=== PATIENT | female | born 1960 | race Caucasian/White ===

== ENCOUNTER → 2017-10-01 | Outpatient (CLI) | payer BC, OTHER ==
[~2017-10-01] MED LIST: HYDR-757 PO; LEVO150T6 PO; LIOT5TAB3 PO; METF500T3 PO; METF500T4 PO; MULT-974 PO; ONDA4TAB8 PO; SPIR50TA2 PO
--- NOTE | 2017-10-01 18:38 | Diagnostic Imaging Report ---
INDICATION: Routine screening. The current study was also evaluated with a Computer Aided Detection (CAD) system. Comparison is made with prior study from 03/16/2007. FINDINGS: Both breasts show marked parenchymal heterogeneity and increased density, limiting the sensitivity of mammography. There is a density in the inferior right breast best seen on the MLO view which appears more prominent when compared with prior exam. Additional views are recommended. No definite correlate on the CC view is seen. The left breast is unremarkable. The axillae are unremarkable. IMPRESSION: Right breast density. Additional views are recommended. ACR BI-RADS Category 0: Incomplete. (Needs additional imaging evaluation). Result letter will be mailed to the patient. Note: At least 10% of breast cancer is not imaged by mammography. Dictated by: Dictated on workstation # [id number]
== END ==
LOC: RAD 10:32
PROVIDERS: ATTEND Nurse Practitioner Family
DX: Z12.31 Encounter for screening mammogram for malignant neoplasm of breast (principal)
CPT/HCPCS: 77067

== ENCOUNTER → 2018-03-25 | Outpatient (CLI) | payer OTHER ==
[~2018-03-25] MED LIST changes: +HYDR-4226 PO; -HYDR-757 PO; +METF-397 PO; -METF500T4 PO; -SPIR50TA2 PO; +SPIR50TA4 PO
--- NOTE | 2018-03-25 12:52 | Diagnostic Imaging Report ---
INDICATION: Right breast density noted on screening mammogram from September 2017. Additional views were recommended. The patient did not return. The patient is now returning for additional views. COMPARISON: 10/01/2017. TECHNIQUE: Unilateral right 2D and 3D diagnostic mammography with CAD was performed. This included CC, MLO, and mediolateral views as well as spot compression ML view of the right breast. FINDINGS: The right breast is heterogeneously dense, limiting the sensitivity of mammography. The area of increased density in the inferior right breast is less prominent on today's study and most likely represents fibroglandular tissue. No underlying mass is seen. No suspicious calcifications are identified. The right axilla is unremarkable. IMPRESSION: Additional views fail to demonstrate a discrete mass. The patient may return to routine annual screening mammography in September 2018. ACR BI-RADS Category 1: Negative. Result letter will be mailed to the patient. Note: At least 10% of breast cancer is not imaged by mammography. Dictated by: Dictated on workstation # [id number]
--- NOTE | 2018-03-25 16:10 | Diagnostic Imaging Report ---
INDICATION: Dysphagia. Thyroid sonography performed in the routine fashion. FINDINGS: The right thyroid lobe measured 6.4 x 2.4 x 1.7 cm. The left thyroid lobe measured 4.7 x 2.1 x 1.5 cm. The thyroid gland showed a diffuse heterogeneous appearance without focal nodular lesion. IMPRESSION: Diffuse heterogeneous thyroid gland with no focal nodular lesion. Dictated by: Dictated on workstation # [id number]
== END ==
LOC: RAD 11:17
PROVIDERS: ATTEND Internal Medicine
DX: R13.10 Dysphagia, unspecified (principal); E01.0 Iodine-deficiency related diffuse (endemic) goiter; R92.2 Inconclusive mammogram
CPT/HCPCS: 76536

== ENCOUNTER → 2020-04-22 | Emergency (ER) | payer BC, OTHER ==
[~2020-04-22] VITALS: Ht 162.5 cm; Wt 98.8 kg
[~2020-04-22] MED LIST changes: +ASPIRIN 81 MG CHEW (CHILDREN'S ASA) PO ONE; +LIOT5TAB10 PO; -LIOT5TAB3 PO
[2020-04-22 16:47] VITALS: BP 158/85
[2020-04-22 17:32] LABS: BASOPHILS # (AUTO) 0.1 10^3/uL (0.0-0.1); BASOPHILS % (AUTO) 1 % (0-10); EOSINOPHILS # (AUTO) 0.4 10^3/uL (0.0-0.3); EOSINOPHILS % (AUTO) 4 % (0-10); HEMATOCRIT 43 % (35-52); HEMOGLOBIN 14.9 G/DL (11.5-16.0); LYMPHOCYTES % (AUTO) 28 % (12-44); MEAN CORPUSCULAR HEMOGLOBIN 32 PG (25-34); MEAN CORPUSCULAR HGB CONC 34 G/DL (32-36); MEAN CORPUSCULAR VOLUME 92 FL (80-99); MEAN PLATELET VOLUME 9.9 FL (7.4-10.4); MONOCYTES # (AUTO) 0.8 X 10^3 (0.0-1.0); MONOCYTES % (AUTO) 8 % (0-12); NEUTROPHILS # (AUTO) 6.4 X 10^3 (1.8-7.8); NEUTROPHILS % (AUTO) 60 % (42-75); PLATELET COUNT 359 10^3/uL (130-400); WHITE BLOOD COUNT 10.8 10^3/uL (4.3-11.0)
[2020-04-22 17:37] LABS: ALBUMIN 4.5 GM/DL (3.2-4.5); CHLORIDE 105 MMOL/L (98-107); POTASSIUM 3.6 MMOL/L (3.6-5.0); SODIUM 140 MMOL/L (135-145)
[2020-04-22 17:38] LABS: CALCIUM 9.5 MG/DL (8.5-10.1)
[2020-04-22 17:39] LABS: GLUCOSE 85 MG/DL (70-105); PROTHROMBIN TIME PATIENT 13.2 SEC (12.2-14.7)
[2020-04-22 17:40] LABS: TOTAL PROTEIN 8.3 GM/DL (6.4-8.2)
[2020-04-22 17:41] LABS: BILIRUBIN,TOTAL 0.6 MG/DL (0.1-1.0); CARBON DIOXIDE 22 MMOL/L (21-32)
[2020-04-22 17:43] LABS: ALKALINE PHOSPHATASE 71 U/L (40-136); CREATININE SERUM 0.85 MG/DL (0.60-1.30); GFR ESTIMATED > 60
[2020-04-22 17:44] LABS: BUN/CREATININE RATIO 19
[2020-04-22 17:46] LABS: ALANINE AMINOTRANSFERASE 86 U/L (0-55)
[2020-04-22 17:47] LABS: MAGNESIUM 1.9 MG/DL (1.6-2.4)
--- NOTE | 2020-04-22 18:12 | Diagnostic Imaging Report ---
EXAMINATION: Chest radiograph, portable AP view. DATE: 04/22/2020 6:02 PM hours. INDICATION: 60-year-old female, chest pain. COMPARISON: None. FINDINGS: Heart size and mediastinal contours are unremarkable. There is no identified pneumothorax. There is no large pleural effusion. There is no identified focal airspace consolidation. IMPRESSION: No identified acute cardiopulmonary abnormality. Dictated by: Dictated on workstation # [id number]
--- NOTE | 2020-04-22 18:18 | ED Cardiac General ---
History of Present Illness General Chief Complaint: Cardiac/General Problems Stated Complaint: HEART PALPITATIONS Nursing Triage Note: pt reports feeling palpitations for several days, states not pain, more anxiety. eating lunch when it began. Source: patient Exam Limitations: no limitations History of Present Illness Date Seen by Provider: Apr 22, 2020 Time Seen by Provider: 16:55 Initial Comments This 60-year-old woman presents to the emergency room with complaints of palpitations intermittently for the past 2 weeks and consistently since about no on today. At one point she described a vague sensation of feeling "tight or heavy" in the chest. She later clarifies that she has no true pain or discomfort, just an odd sensation accompanying the palpitations.she denies any cardiopulmonary problems in the past. She had a stress test many years ago that reportedly was negative. Her primary care provider is Julisa Blake. Allergies and Home Medications Allergies Coded Allergies: No Known Drug Allergies (Unverified , 02/13/16) Home Medications Hydrocodone/Acetaminophen 1 Each Tablet, 1 EACH PO Q6H PRN for PAIN, (Reported) Levothyroxine Sodium 150 Mcg Tablet, 150 MCG PO DAILY, (Reported) Liothyronine Sodium 5 Mcg Tablet, 10 MCG PO DAILY, (Reported) Metformin HCl 500 Mg Tab.er.24h, 500 MG PO BID, (Reported) Multivitamin 1 Each Tablet, 1 EACH PO DAILY, (Reported) Ondansetron 4 Mg Tab.rapdis, 4 MG PO Q6H PRN for NAUSEA, (Reported) Spironolactone 50 Mg Tablet, 100 MG PO DAILY, (Reported) Patient Home Medication List Home Medication List Reviewed: Yes Review of Systems Review of Systems Constitutional: no symptoms reported EENTM: No Symptoms Reported Respiratory: No Symptoms Reported Cardiovascular: See HPI Gastrointestinal: No Symptoms Reported Genitourinary: No Symptoms Reported Musculoskeletal: no symptoms reported Skin: no symptoms reported Psychiatric/Neurological: No Symptoms Reported Endocrine: No Symptoms Reported Past Pkfoeiq-Icylmb-Yvwabe Hx Past Med/Social Hx: Reviewed Nursing Past Med/Soc Hx Patient Social History Alcohol Use: Occasionally Uses Recreational Drug Use: No Smoking Status: Never a Smoker Recent Foreign Travel: No Contact w/Someone Who Travel: No Recent Infectious Disease Expo: No Recent Hopitalizations: No Physical Abuse: No Sexual Abuse: No Mistreated: No Seasonal Allergies Seasonal Allergies: No Past Medical History Surgeries: Yes Hysterectomy Respiratory: No Cardiac: No Neurological: No 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 8.0oz. 87.571531hd; 37.00 BMI Method:Estimated General Appearance: No Apparent Distress, WD/WN HEENT: PERRL/EOMI, Normal ENT Inspection Neck: Normal Inspection Respiratory: Lungs Clear, Normal Breath Sounds, No Accessory Muscle Use, No Respiratory Distress Cardiovascular: Regular Rate, Rhythm, No Edema, No Murmur, Normal Peripheral Pulses, Other (intermittent frequent PVCs) Gastrointestinal: Normal Bowel Sounds, Non Tender, Soft Extremity: Normal Inspection, Non Tender, No Calf Tenderness, No Pedal Edema Neurologic/Psychiatric: Alert, Oriented x3, No Motor/Sensory Deficits, Normal Mood/Affect, pile header II-XII Norm as Tested Skin: Normal Color, Warm/Dry Progress/Results/Core Measures Results/Orders Lab Results Laboratory Tests Test 04/22/20 16:52 04/22/20 19:09 Range/Units White Blood Count 10.8 4.3-11.0 10^3/uL Red Blood Count 4.71 4.35-5.85 10^6/uL Hemoglobin 14.9 11.5-16.0 G/DL Hematocrit 43 35-52 % Mean Corpuscular Volume 92 80-99 FL Mean Corpuscular Hemoglobin 32 25-34 PG Mean Corpuscular Hemoglobin Concent 34 32-36 G/DL Red Cell Distribution Width 12.7 10.0-14.5 % Platelet Count 359 130-400 10^3/uL Mean Platelet Volume 9.9 7.4-10.4 FL Neutrophils (%) (Auto) 60 42-75 % Lymphocytes (%) (Auto) 28 12-44 % Monocytes (%) (Auto) 8 0-12 % Eosinophils (%) (Auto) 4 0-10 % Basophils (%) (Auto) 1 0-10 % Neutrophils # (Auto) 6.4 1.8-7.8 X 10^3 Lymphocytes # (Auto) 3.0 1.0-4.0 X 10^3 Monocytes # (Auto) 0.8 0.0-1.0 X 10^3 Eosinophils # (Auto) 0.4 H 0.0-0.3 10^3/uL Basophils # (Auto) 0.1 0.0-0.1 10^3/uL Prothrombin Time 13.2 12.2-14.7 SEC INR Comment 1.0 0.8-1.4 Activated Partial Thromboplast Time 28 24-35 SEC Sodium Level 140 135-145 MMOL/L Potassium Level 3.6 3.6-5.0 MMOL/L Chloride Level 105 98-107 MMOL/L Carbon Dioxide Level 22 21-32 MMOL/L Anion Gap 13 5-14 MMOL/L Blood Urea Nitrogen 16 7-18 MG/DL Creatinine 0.85 0.60-1.30 MG/DL Estimat Glomerular Filtration Rate > 60 BUN/Creatinine Ratio 19 Glucose Level 85 70-105 MG/DL Calcium Level 9.5 8.5-10.1 MG/DL Corrected Calcium 9.1 8.5-10.1 MG/DL Magnesium Level 1.9 1.6-2.4 MG/DL Total Bilirubin 0.6 0.1-1.0 MG/DL Aspartate Amino Transf (AST/SGOT) 59 H 5-34 U/L Alanine Aminotransferase (ALT/SGPT) 86 H 0-55 U/L Alkaline Phosphatase 71 40-136 U/L Myoglobin 203.0 H 10.0-92.0 NG/ML Troponin I < 0.028 < 0.028 <0.028 NG/ML Total Protein 8.3 H 6.4-8.2 GM/DL Albumin 4.5 3.2-4.5 GM/DL My Orders Orders - NATALIE YA MD Cbc With Automated Diff (04/22/20 17:23) Magnesium (04/22/20 17:23) Chest 1 View, Ap/Pa Only (04/22/20 17:23) Ekg Tracing (04/22/20 17:23) Comprehensive Metabolic Panel (04/22/20 17:23) Myoglobin Serum (04/22/20 17:23) Protime With Inr (04/22/20 17:23) Partial Thromboplastin Time (04/22/20 17:23) O2 (04/22/20 17:23) Monitor-Rhythm Ecg Trace Only (04/22/20 17:23) Lipid Panel (04/23/20 06:00) Ed Iv/Invasive Line Start (04/22/20 17:23) Troponin I (04/22/20 17:23) Troponin I (04/22/20 19:00) Ekg Tracing (04/22/20 18:18) Aspirin Chewable Tablet (Baby Aspirin Ch (04/22/20 18:30) Medications Given in ED Current Medications Medications Dose Ordered Sig/Ilene Route Start Time Stop Time Status Last Admin Dose Admin Aspirin 324 mg ONCE ONCE PO 04/22/20 18:30 04/22/20 18:31 DC 04/22/20 18:36 324 MG Vital Signs/I&O 04/22/20 16:47 Temp 36.5 Pulse 89 Resp 20 B/P (MAP) 158/85 (109) Pulse Ox 95 O2 Delivery Room Air Blood Pressure Mean: 109 Progress Progress Note : Progress Note Initial workup was unremarkable. 2 hour troponin and EKG were also unremark able. Patient was discharged home in stable condition with return precautions. Initial ECG Impression Date: Apr 22, 2020 Initial ECG Impression Time: 16:47 Initial ECG Rate: 93 Initial ECG Rhythm: Normal Sinus Initial ECG Intervals: Normal Initial ECG Impression: Normal Comment Normal sinus rhythm with no ST elevation or depression. No abnormal intervals or axis deviation. Diagnostic Imaging Diagonstic Imaging: Xray Plain Films/CT/US/NM/MRI: chest Comments NAME: KAMRYN ARRIOLA [facility] REC#: [id number] PT STATUS: REG ER : 1960 PHYSICIAN: NATALIE YA MD ADMIT DATE: 04/22/20/ER Signed Date of Exam:04/22/20 CHEST 1 VIEW, AP/PA ONLY EXAMINATION: Chest radiograph, portable AP view. DATE: 04/22/2020 6:02 PM hours. INDICATION: 60-year-old female, chest pain. COMPARISON: None. FINDINGS: Heart size and mediastinal contours are unremarkable. There is no identified pneumothorax. There is no large pleural effusion. There is no identified focal airspace consolidation. IMPRESSION: No identified acute cardiopulmonary abnormality. Dictated by: Dictated on workstation # [id number] Dict: 04/22/201809 Trans: 04/22/201827 CVB [id number] Interpreted by: BENI RAHMAN MD Electronically signed by: BENI RAHMAN MD 04/22/201827 Departure Impression Primary Impression: PVCs (premature ventricular contractions) Additional Impression: Palpitations Disposition: HOME, SELF-CARE Condition: Improved Departure-Patient Inst. Referrals: KAIN BLAKE DO (PCP/Family) Primary Care Physician Patient Instructions: Chest Pain, Palpitations Add. Discharge Instructions: Follow-up with your primary care provider soon as possible. Call tomorrow for an appointment. If you develop chest pain or worsening symptoms, please return to the emergency room. Take aspirin 81 mg daily until otherwise instructed. All discharge instructions reviewed with patient and/or family. Voiced understanding. Copy Copies To 1: KAIN BLAKE JOSHUA T MD Apr 22, 2020 18:18
--- NOTE | 2020-04-22 19:00 | NUR ---
REPEAT EKG AND TROPONIN.
== END ==
LOC: EDUNIT# 16:43 → ER 16:44
DX: I49.3 Ventricular premature depolarization (principal); R00.2 Palpitations; E03.9 Hypothyroidism, unspecified; E11.9 Type 2 diabetes mellitus without complications; Z79.890 Hormone replacement therapy; Z79.84 Long term (current) use of oral hypoglycemic drugs
CPT/HCPCS: 36415; 71045; 80053; 83735; 83874; 84484; 85025; 85610; 85730; 93005; 93041

== ENCOUNTER → 2021-03-26 | Outpatient (CLI) | payer BC ==
[~2021-03-26] MED LIST changes: -ASPIRIN 81 MG CHEW (CHILDREN'S ASA) PO ONE
--- NOTE | 2021-03-26 12:00 | Diagnostic Imaging Report ---
INDICATION: Persistent cough, dyspnea, night sweats, Covid, and fatigue. COMPARISON: 04/22/2020. FINDINGS: The lungs are clear. The heart size and pulmonary vascularity are normal. The hilar and mediastinal contours are normal. No failure, effusion, or pneumothorax. IMPRESSION: Normal 2 view chest. Dictated by: Dictated on workstation # [id number]
== END ==
LOC: RAD 11:21
PROVIDERS: ATTEND Internal Medicine
DX: U07.1 COVID-19 (principal)
CPT/HCPCS: 71046

== ENCOUNTER → 2021-03-27 | Outpatient (CLI) | payer BC ==
[~2021-03-27] MED LIST changes: +CATHETER FLUSH 10 ML SYR IV PRN; +HOLD METFORMIN - RECEIVED CONTRAST 20 ML VIAL IV SCH; +IOHEXOL 350 MG/ML 100 ML (OMNIPAQUE 350) VIAL IV ONE; +NS 100 ML (IVPB) BAG IV ONE
--- NOTE | 2021-03-27 16:46 | Diagnostic Imaging Report ---
PROCEDURE: CT angiography of the chest with contrast. TECHNIQUE: Multiple contiguous axial images were obtained through the chest after uneventful bolus administration of intravenous contrast. 3D reconstructed CTA MIP acquisitions were also performed. Auto Exposure Controls were utilized during the CT exam to meet ALARA standards for radiation dose reduction. INDICATION: Dyspnea. COMPARISON: Radiograph of the chest dated March 26, 2021. FINDINGS: No significant adenopathy within the chest. No aneurysmal dilatation or dissection of the thoracic aorta. The heart is within normal limits in size. No pericardial effusion. No pleural effusion. No pneumothorax. The trachea is patent. The lungs are clear. No significant filling defect within the central or segmental pulmonary arteries. Cholecystectomy. The visualized upper abdomen is otherwise unremarkable. No acute osseous abnormality with mild scattered osseous degenerative changes. IMPRESSION: No significant pulmonary embolus. No acute abnormality identified within the chest. Dictated by: Dictated on workstation # [id number]
== END ==
LOC: RAD 16:00
PROVIDERS: ATTEND Nurse Practitioner Family
DX: R06.00 Dyspnea, unspecified (principal)
CPT/HCPCS: 71275

== ENCOUNTER → 2021-09-24 | Outpatient (CLI) | payer BC ==
[~2021-09-24] MED LIST changes: -CATHETER FLUSH 10 ML SYR IV PRN; -HOLD METFORMIN - RECEIVED CONTRAST 20 ML VIAL IV SCH; -IOHEXOL 350 MG/ML 100 ML (OMNIPAQUE 350) VIAL IV ONE; -NS 100 ML (IVPB) BAG IV ONE
--- NOTE | 2021-09-24 10:23 | Diagnostic Imaging Report ---
PROCEDURE: US Venous Lower Ext Jose. TECHNIQUE: Multiple Real-time grayscale images were obtained over the lower extremities in various projections bilaterally. Additional duplex Doppler and color Doppler images were also obtained. INDICATION: Elevated D-dimer. FINDINGS: There is no evidence of right or left lower extremity DVT. Both lower extremity deep venous systems demonstrate normal compressibility with normal response to augmentation and Valsalva. No fluid collection or mass is detected. IMPRESSION: No evidence of right or left lower extremity DVT. Dictated by: Dictated on workstation # [id number]
--- NOTE | 2021-09-24 10:25 | Diagnostic Imaging Report ---
INDICATION: Heavy legs and blue toes. TECHNIQUE: Grayscale, color-flow, and duplex Doppler evaluation of the right lower extremity arterial system was performed. FINDINGS: There are triphasic waveforms throughout the right common femoral, superficial femoral, and popliteal arteries demonstrating normal velocities. There are biphasic waveforms below the knee involving the posterior tibial and dorsalis pedis arteries with normal velocities. No high-grade stenosis or occlusion is identified. IMPRESSION: Unremarkable right lower extremity arterial Doppler. Dictated by: Dictated on workstation # [id number]
== END ==
LOC: RAD 09:00
PROVIDERS: ATTEND Nurse Practitioner Family
DX: R79.1 Abnormal coagulation profile (principal); R29.898 Other symptoms and signs involving the musculoskeletal system; I75.029 Atheroembolism of unspecified lower extremity
CPT/HCPCS: 93926; 93970

== ENCOUNTER → 2021-09-25 | Outpatient (CLI) | payer BC ==
[~2021-09-25] MED LIST changes: +HOLD METFORMIN - RECEIVED CONTRAST 20 ML VIAL IV SCH; +IOHEXOL 350 MG/ML 100 ML (OMNIPAQUE 350) VIAL IV ONE; +NS 100 ML (IVPB) BAG IV ONE
--- NOTE | 2021-09-25 12:48 | Diagnostic Imaging Report ---
PROCEDURE: CT angiography of the chest with contrast. TECHNIQUE: Multiple contiguous axial images were obtained through the chest after uneventful bolus administration of intravenous contrast. 3D reconstructed CTA MIP acquisitions were also performed. Auto Exposure Controls were utilized during the CT exam to meet ALARA standards for radiation dose reduction. INDICATION: Elevated D-dimer COMPARISON: 03/27/2021 There is good opacification of pulmonary arteries without intraluminal filling defect. Thoracic aorta is of normal caliber. Lungs are clear. There is no evidence of pneumothorax. No significant pleural or pericardial fluid is identified. Note is made of hepatic steatosis. There is a mildly displaced fracture involving the anterolateral aspect of left 6th rib. IMPRESSION: Left 6th rib fracture without other evidence of acute abnormality in the chest. In particular, there is no evidence of pulmonary embolism. Dictated by: Dictated on workstation # [id number]
== END ==
LOC: RAD 09:35
PROVIDERS: ATTEND Nurse Practitioner Family
DX: S22.32XA Fracture of one rib, left side, initial encounter for closed fracture (principal); X58.XXXA Exposure to other specified factors, initial encounter; R07.89 Other chest pain; R06.00 Dyspnea, unspecified; R79.1 Abnormal coagulation profile
CPT/HCPCS: 71275

== ENCOUNTER 2022-03-05 09:58 | Outpatient (RCR) | payer BC ==
[~2022-03-05] VITALS: Ht 162.6 cm; Wt 98.8 kg
[~2022-03-05 09:58] MED LIST changes: -HOLD METFORMIN - RECEIVED CONTRAST 20 ML VIAL IV SCH; -IOHEXOL 350 MG/ML 100 ML (OMNIPAQUE 350) VIAL IV ONE; -NS 100 ML (IVPB) BAG IV ONE
[2022-03-05 11:14] LABS: BASOPHILS # (AUTO) 0.1 10^3/uL (0.0-0.1); BASOPHILS % (AUTO) 1 % (0-10); EOSINOPHILS # (AUTO) 0.2 10^3/uL (0.0-0.3); EOSINOPHILS % (AUTO) 2 % (0-10); HEMATOCRIT 43 % (35-52); HEMOGLOBIN 14.8 g/dL (11.5-16.0); LYMPHOCYTES # (AUTO) 2.3 10^3/uL (1.0-4.0); LYMPHOCYTES % (AUTO) 25 % (12-44); MEAN CORPUSCULAR HEMOGLOBIN 33 pg (25-34); MEAN CORPUSCULAR HGB CONC 35 g/dL (32-36); MEAN CORPUSCULAR VOLUME 96 fL (80-99); MEAN PLATELET VOLUME 9.7 fL (9.0-12.2); MONOCYTES # (AUTO) 0.7 10^3/uL (0.0-1.0); MONOCYTES % (AUTO) 8 % (0-12); NEUTROPHILS % (AUTO) 64 % (42-75); PLATELET COUNT 374 10^3/uL (130-400); WHITE BLOOD COUNT 9.4 10^3/uL (4.3-11.0)
[2022-03-05 11:15] LABS: BILIRUBIN,URINE NEGATIVE (NEGATIVE); CLARITY,URINE CLEAR; COLOR,URINE YELLOW; GLUCOSE, URINE (UA) NEGATIVE (NEGATIVE); KETONES,URINE NEGATIVE (NEGATIVE); LEUKOCYTE ESTERASE ,URINE 1+ (NEGATIVE); NITRITE,URINE NEGATIVE (NEGATIVE); PH,URINE 6.5 (5-9); PROTEIN,URINE NEGATIVE (NEGATIVE)
--- NOTE | 2022-03-05 11:17 | Diagnostic Imaging Report ---
INDICATION: Preop for left knee replacement. PA and lateral chest obtained at 11:09 a.m. FINDINGS: Heart and mediastinal silhouette are normal in appearance. Lungs are clear. There is no pneumothorax or pleural fluid. IMPRESSION: No acute process in the chest. Dictated by: Dictated on workstation # [id number]
[2022-03-05 11:25] LABS: INR 0.9 (0.8-1.4); PROTHROMBIN TIME PATIENT 12.5 SEC (12.2-14.7)
[2022-03-05 11:32] LABS: ALBUMIN 4.3 GM/DL (3.2-4.5); BILIRUBIN,TOTAL 0.5 MG/DL (0.1-1.0); CALCIUM 9.8 MG/DL (8.5-10.1); CREATININE SERUM 0.81 MG/DL (0.60-1.30); POTASSIUM 4.3 MMOL/L (3.6-5.0)
[2022-03-05 11:39] LABS: BACTERIA,URINE LARGE /HPF; RBC,URINE RARE /HPF; WBC,URINE 25-50 /HPF
[2022-03-05 11:40] LABS: ERYTHROCYTE SEDIMENTATION RATE 18 MM/HR (0-30)
[2022-03-05] MEDS ORDERED: MONT-40 PO (16:33)
[2022-03-05] MEDS ORDERED: ALLO100T PO (16:33)
[2022-03-05] MEDS ORDERED: DULA1.5P2 SQ (16:33)
[2022-03-05] MEDS ORDERED: Vitamin B12 SC (16:33)
[2022-03-05] MEDS ORDERED: LEVO125T6 PO (16:33)
[2022-03-05] MEDS ORDERED: MAGN250T13 PO (16:33)
[2022-03-05] MEDS ORDERED: METF-478 PO (16:33)
[2022-03-05] MEDS ORDERED: LOSA50TA63 PO (16:33)
== END 2022-04-01 | disposition home or self-care (01) ==
LOC: PREOP 09:58
PROVIDERS: ATTEND Orthopaedic Surgery
DX: Z01.818 Encounter for other preprocedural examination (principal); M17.12 Unilateral primary osteoarthritis, left knee
CPT/HCPCS: 36415; 71046; 80053; 81000; 85025; 85610; 85652; 86850; 86900; 86901; 87077; 87081; 87088; 87186; 93005

== ENCOUNTER 2022-03-11 05:52 | Inpatient (IN) | payer BC ==
--- NOTE | 2022-03-04 10:05 | HISTORY AND PHYSICAL ---
DATE OF SERVICE: ADMISSION HISTORY AND PHYSICAL This will be for inpatient admission on 03/11/2022 for left total knee arthroplasty. The patient will require regular inpatient admission due to need for physical therapy, need for pain management and comorbidities. HISTORY OF PRESENT ILLNESS: The patient is a 62-year-old female with longstanding left knee pain. She reports pain on the medial aspect of her knee. She reports catching and locking. She reports that she has tried injections, anti-inflammatories and rest without relief. She reports that this is interfering with her activities of daily living and because of this, I elected to proceed with surgical intervention. Radiographs reveal complete loss of medial and patellofemoral joint spaces. REVIEW OF SYSTEMS: No chest pain, no shortness of breath, no dysuria. PAST MEDICAL HISTORY: Echo's hypothyroidism, asthma. PAST SURGICAL HISTORY: L4 to S1 surgeries x3, hysterectomy, cholecystectomy, left knee arthroscopy, colonoscopy, right carpal tunnel. FAMILY HISTORY: Significant for hypertension. PRIMARY CARE PROVIDER: Marion Blake. MEDICATIONS: Losartan, clobetasol, probiotic, magnesium, aspirin, Naprosyn, metformin, vitamin B12, allopurinol, liothyronine, Trulicity, spironolactone, levothyroxine, albuterol, nystatin, Singulair. ALLERGIES: No known drug allergies. SOCIAL HISTORY: The patient drinks alcohol occasionally. Denies tobacco use. PHYSICAL EXAMINATION: GENERAL: The patient is well-developed, well-nourished, in no acute distress. HEENT: Normocephalic, atraumatic. Pupils are equal, round, reactive to light. Oropharynx is clear. NECK: Supple, no lymphadenopathy. LUNGS: Clear to auscultation bilaterally. HEART: Regular rate and rhythm. ABDOMEN: Soft, nontender, nondistended. EXTREMITIES: The left knee demonstrates varus alignment. She is tender along her medial joint line. She has pain medially with Isaias's. She has patellofemoral crepitus and pain with patellar loading. Range of motion actively is 0/5/110. IMPRESSION: Severe left knee osteoarthritis. PLAN: Left total knee arthroplasty. The risks, benefits, options, ramifications and recovery were discussed at length with the patient. She understands and wishes to proceed. Job ID: [id number] DocumentID: [id number] Dictated Date: 02/23/2022 11:54:49 Rock Wool Applicator Date: 02/23/2022 12:11:13 Dictated By: MADELYN LU MD
[~2022-03-11] VITALS: Ht 162.6 cm; Wt 98.8 kg
[2022-03-11] VITALS (12 sets, daily range): BP systolic 130–170; BP diastolic 64–83
[~2022-03-11 05:52] MED LIST changes: +ALLO100T PO; +DULA1.5P2 SQ; +LEVO125T6 PO; +LOSA50TA63 PO; +MAGN250T13 PO; +METF-478 PO; +MONT-40 PO; +Vitamin B12 SC
[2022-03-11] MEDS ORDERED: MIDAZOLAM 2 MG/2 ML (VERSED) VIAL ONE (06:40)
[2022-03-11] MEDS ORDERED: LIDOCAINE PF 2% 5 ML (XYLOCAINE) VIAL ONE ×2 (06:40→07:03)
[2022-03-11] MEDS ORDERED: ROPIVACAINE 5MG/ML 30ML VIAL ONE (06:40)
[2022-03-11] MEDS ORDERED: CEFUROXIME 1.5 GM/15 ML (ZINACEF) VIAL ONE (07:02)
[2022-03-11] MEDS ORDERED: ONDANSETRON 4 MG/2 ML (SDV) Z0FRAN ONE (07:03)
[2022-03-11] MEDS ORDERED: proPOfol 200 MG/20 ML (DIPRIVAN) VIAL IV ONE (07:03)
[2022-03-11] MEDS ORDERED: fentaNYL INJ 100 MCG/2 ML AMP ONE (07:03)
[2022-03-11] MEDS ORDERED: GLYCOPYRROLATE 0.2 MG/ML (ROBINUL) 2 ML VIAL ONE (07:03)
[2022-03-11] MEDS ORDERED: ROCURONIUM 50 MG/5 ML (ZEMURON) VIAL IV ONE (07:03)
[2022-03-11] MEDS ORDERED: NEOSTIGMINE (BLOXIVERZ ) 1 MG/1ML 10 ML VIAL ONE (07:04)
[2022-03-11] MEDS: LACTATED RINGERS 1,000 ML IV PRN ×2 (07:09→08:03)
[2022-03-11] MEDS ORDERED: CEFUROXIME INJECTION 1,500 MG in NS (IVPB) 50 ML IV ONE (07:15)
[2022-03-11] MEDS ORDERED: NALOXONE 0.4 MG/ML 1 ML (NARCAN) VIAL IV PRN (07:15)
[2022-03-11] MEDS ORDERED: diphenhydrAMINE 50 MG/ML INJ (BENADRYL) IVP PRN (07:15)
[2022-03-11] MEDS ORDERED: morphine INJ 10 MG/ML 1ML (SYR OR VIAL) IVP ONE (07:15)
[2022-03-11] MEDS ORDERED: HYDROmorphone 2 MG/ML VIAL (DILAUDID) IV ONE (07:15)
[2022-03-11] MEDS ORDERED: morphine PCA 100 MG/100 ML BAG IV PRN (07:15)
[2022-03-11] MEDS ORDERED: ONDANSETRON 4 MG/2 ML (SDV) Z0FRAN IVP PRN ×2 (07:15)
[2022-03-11] MEDS ORDERED: TRANEXAMIC ACID 100 MG/ML 10 ML INJECTION ONE (07:22)
[2022-03-11] MEDS ORDERED: INTRA-ARTICULAR IU ONE ×5 (07:30)
--- NOTE | 2022-03-11 07:31 | Progress Note-Pre Operative ---
Pre-Operative Progress Note Date of Available H&P: Mar 11, 2022 Date H&P Reviewed: Mar 11, 2022 Time H&P Reviewed: 07:11 Changes from last HP none Pre-Operative Diagnosis: left knee primary osteoarthritis MADELYN LU MD Mar 11, 2022 07:31
--- NOTE | 2022-03-11 07:32 | Progress Note-Post Operative ---
Post-Operative Progess Note Surgeon (s)/Aeg[employer] Console Operator Track (s) Surgeon MADELYN LU MD [employer]eg[employer] Console Operator Track: Temo Tamayo Pre-Operative Diagnosis left knee primary osteoarthritis Post-Operative Diagnosis left knee primary osteoarthritis Procedure & Operative Findings Date of Procedure 03/11/22 Procedure Performed/Findings left total knee arthroplasty Anesthesia Type GETA Estimated Blood Loss Estimated blood loss (mL): minimal Specimens/Packing Specimens Removed none Packing: none MADELYN LU MD Mar 11, 2022 07:32
--- NOTE | 2022-03-11 07:34 | D/C HH Face to Face Order ---
D/C Face to Face Orders Reconcile Patient Problems Problems Reviewed?: Yes Instructions for Patient Via [facility], Patient Instructions/FollowUp: three weeks Physician to follow Patient: three weeks Discharge Diet for Home: Regular Diet Patient Data-Allergies,Ht & Wt Patient Allergies: Coded Allergies: No Known Drug Allergies (Unverified , 03/11/22) Height (Feet): 5 Height (Inches): 4.00 Weight (Pounds): 192 Weight (Ounces): 8.0 Home Health Need/Face to Face Date of Face to Face: Mar 11, 2022 Clinical Findings: Muscle weakness, Pain with ambulation I have seen Pt [id number]: Yes Discharged To: Home Diagnosis/Conditions: left total knee arthroplasty Patient is Homebound due to: Muscle weakness, Pain w/ambulation Homebound Status Due to the above stated illness, injury or surgical procedure (medical condition or diagnosis) and associated clinical findings, the patient is homebound because of his/her inability to leave home except with aid of a supportive device and/or person AND leaving the home requires a considerable and taxing effort or is medically contraindicated. Pt req the following assistanc: [facility] Nursing Orders Home Health Services Order: Physical Therapy-Evaluate & Treat DC left knee bruna and apply steri strips 03/25/22 Home Health Infusion Therapy Line Start Date: Mar 11, 2022 Therapy Orders Therapy Orders: Physical Therapy, PT to assess for OT Therapy Specific Orders: Eval assistive deivces, Teach enviro modifications/safety, Gait training, Increase strength/endurance, Provider maintenance therapy, Restore ROM Certify Stmt I certify that this patient is under my care and that I, a nurse practitioner or a physician; a medical billing assistant working with me, had a face to face encounter that - meets the physician face to face encounter requirements with this patient as dated. MADELYN LU MD Mar 11, 2022 07:34
[2022-03-11] MEDS ORDERED: HYDROmorphone 2 MG/ML VIAL (DILAUDID) ONE (08:07)
[2022-03-11] MEDS ORDERED: SEVOFLURANE (ULTANE) 15 ML INHAL SOLN ONE (09:12)
--- NOTE | 2022-03-11 09:39 | Diagnostic Imaging Report ---
INDICATION: Postop left knee. TIME OF EXAM: 9:18 AM 2 views of left knee demonstrate postop changes of total knee arthroplasty. Prosthetic elements are in good position. No fracture or loosening is seen. There are overlying skin bruna. IMPRESSION: Satisfactory postop appearance to the left knee. Dictated by: Dictated on workstation # [id number]
--- NOTE | 2022-03-11 10:16 | Progress Note ---
Standard Progress Note Progress Notes/Assess & Plan Date Seen by a Provider: Mar 11, 2022 Time Seen by a Provider: 09:20 Progress/Assessment & Plan post op check no complaints radiographs--HW well positioned without fracture LLE--2 plus DP pulse with brisk cap refill, Intact sensation to light touch throughout intact DF and PF of toes and ankle s/p L TKA mobilize as able MADELYN LU MD Mar 11, 2022 10:16
--- NOTE | 2022-03-11 11:37 | Consultation - Hospitalist ---
HPI History of Present Illness: HPI/Chief Complaint Patient is patient is a 62-year-old female with a past medical history of ozq-rjwlxww-gridbervu diabetes type 2, hypothyroidism, osteoarthritis who was admitted to the hospital for total knee replacement by Dr. Hernandez. I am consulted for medical management. She has recently returned from the PACU and has no complaints. She states she is feeling well and her pain is well controlled. RN is at bedside getting LOZENGE MAKER HELPER set up. Source: patient Date Seen 03/11/22 Attending Physician Bhupinder Blake DO PCP Admitting Physician: Luis Hernandez MD Attending Physician: Luis Hernandez MD Referring Physician Date of Admission Mar 11, 2022 at 05:52 Home Medications & Allergies Home Medications Reviewed patient Home Medication Reconciliation performed by pharmacy medication reconciliations microbiological laboratory technician and/or nursing. Patients Allergies have been reviewed. Allergies Allergies Coded Allergies No Known Drug Allergies (Unverified03/11/22) Past Zrryafe-Ynalku-Rkjhip Hx Patient Social History Tobacco Use?: No Smoking Status: Never a Smoker Smokeless Tobacco Frequency: Never a User Use of E-Cig and/or Vaping dev: No Substance use?: No Alcohol Use?: Yes Alcohol Frequency: Rarely Pt feels they are or have been: No Immunizations Up To Date First/Initial COVID19 Vaccinat: Series complete Seasonal Allergies Seasonal Allergies: No Current Status status: No status: No Advance Directives: No Communicates: Verbally Primary Language: Maltese Preferred Spoken Language: Maltese Is interpretation needed?: No Implanted or Applied Medical D: None Past Medical History Surgeries: Hysterectomy Currently Using CPAP: Yes Currently Using BIPAP: No Hypertension NURSE MIDWIFE History: Hysterectomy Hypothyroidsim, Diabetes, Non-Insulin dep Blood Disorders: No Family Medical History Reviewed Nursing Family Hx FHx: gallbladder disease 19 MOTHER FHx: spina bifida G8 BROTHER No Pertinent Family Hx Review of Systems Constitutional: No chills, No fever EENTM: no symptoms reported Respiratory: no symptoms reported Cardiovascular: no symptoms reported Gastrointestinal: no symptoms reported Genitourinary: no symptoms reported Musculoskeletal: joint pain Skin: no symptoms reported Psychiatric/Neurological: No Symptoms Reported Physical Exam Physical Exam Vital Signs Vital Signs - First Documented 03/11/22 06:15 Temp 36.2 Pulse 89 Resp 20 B/P (MAP) 147/71 (96) Pulse Ox 99 O2 Delivery Room Air Capillary Refill : Less Than 3 Seconds Height, Weight, BMI Height: 5'4.00" Weight: 192lbs. 8.0oz. 87.013067cy; 37.36 BMI Method:Estimated General Appearance: No Apparent Distress, WD/WN, Obese HEENT: PERRL/EOMI, Moist Mucous Membranes; No Scleral Icterus (L), No Scleral Icterus (R) Neck: Normal Inspection, Supple Respiratory: Lungs Clear, No Accessory Muscle Use, No Respiratory Distress Cardiovascular: Regular Rate, Rhythm, No JVD, No Murmur Gastrointestinal: Normal Bowel Sounds, Non Tender, Soft Extremity: Normal Capillary Refill, No Calf Tenderness, No Pedal Edema, Other (compression stocking in place on left leg) Neurologic/Psychiatric: Alert, Oriented x3 Skin: Normal Color, Warm/Dry Results Results/Procedures Labs Patient resulted labs reviewed. Imaging: Reviewed Imaging Report Imaging [facility], [place] NAME: KAMRYN ARRIOLA MED REC#: [id number] PT STATUS: ADM IN : 1960 PHYSICIAN: ASHLEY BRAN ADMIT DATE: 03/11/22/SURG Draft Date of Exam:03/11/22 KNEE, LEFT, 2 VIEWS (AP & LAT) INDICATION: Postop left knee. TIME OF EXAM: 9:18 AM 2 views of left knee demonstrate postop changes of total knee arthroplasty. Prosthetic elements are in good position. No fracture or loosening is seen. There are overlying skin bruna. IMPRESSION: Satisfactory postop appearance to the left knee. Dictated on workstation # [id number] Dict: 03/11/22 0935 Trans: 03/11/22 0938 [id number] Interpreted by: CHARO RODRIGUES MD Electronically signed by: Assessment/Plan Assessment and Plan Assess & Plan/Chief Complaint OA s/p left TKA management per primary LOZENGE MAKER HELPER for pain control IRF Hypothyroidism Continue home meds NIDDMII SSI Accuchecks HTN Continue home meds DVT ppx: Lovenox Will round prn Diagnosis/Problems Diagnosis/Problems (1) Osteoarthritis of left knee (2) Hypothyroid Status: Acute (3) Diabetes Status: Acute ASHIA KEENAN MD Mar 11, 2022 11:37
[2022-03-11] MEDS: NS IV 1000 ML 1,000 ML IV SCH (11:38)
[2022-03-11] MEDS: SENNA W/DOCUSATE (SENOKOT S) TABLET PO SCH ×2 (11:48→20:26)
--- NOTE | 2022-03-11 13:42 | Physical Therapy Evaluation ---
PT Evaluation-General Medical Diagnosis Admission Date Mar 11, 2022 at 05:52 Medical Diagnosis: left TKA Onset Date: Mar 11, 2022 Therapy Diagnosis Therapy Diagnosis: impaired mobility, ROM Height/Weight Height (Feet): 5 Height (Inches): 4.00 Weight (Pounds): 192 Weight (Ounces): 8.0 Precautions Precautions/Isolations: Standard Precautions Weight Bear Status Left Lower Extremity: Left Weight Bearing/Tolerated Referral Physician: Roni Reason for Referral: Evaluation/Treatment Medical History Additional Medical History PAST MEDICAL HISTORY: Echo's hypothyroidism, asthma. PAST SURGICAL HISTORY: L4 to S1 surgeries x3, hysterectomy, cholecystectomy, left knee arthroscopy, colonoscopy, right carpal tunnel. Reviewed History: Yes Social History Home: Single Level Current Living Status: Spouse Entry Into Home: Stairs Without Railing PT Steps Into Home: 2 Prior Prior Level of Function SCALE: Activities may be completed with or without assistive devices. 5-Nnngscnqdb-bfycgtf completes the activity by him/herself with no assistance from a helper. 5-Set-up or Clean-up Assistance-helper sets up or cleans up; patient completes activity. [place] assists only prior to or following the activity. 4-Supervision or Touching Assistance-helper provides verbal cues and/or touching/steadying and/or contact guard assistance as patient completes activity. Assistance may be provided throughout the activity or intermittently. 3-Partial/Moderate Assistance-helper does LESS THAN HALF the effort. [place] lifts, holds or supports trunk or limbs, but provides less than half the effort. 2-Substantial/Maximal Assistance-helper does MORE THAN HALF the effort. [place] lifts or holds trunk or limbs and provides more than half the effort. 0-Rpttbwofk-suftyz does ALL the effort. Patient does none of the effort to complete the activity. Or, the assistance of 2 or more helpers is required for the patient to complete the activity. If activity was not attempted, code reason: 7-Patient Refused. 9-Not Applicable-not attempted and the patient did not perform the activity before the current illness, exacerbation or injury. 10-Not Attempted due to Environmental Limitations-(lack of equipment, weather restraints, etc.). 88-Not Attempted due to Medical Conditions or Safety Concerns. Bed Mobility: 6 Transfers (B,C,W/C): 6 Gait: 6 Stairs: 6 Indoor Mobility (Ambulation): Independent Stairs: Independent PT Evaluation-Current Subjective Patient in bed pre tx, agrees to PT, has no complaints of pain. Pt/Family Goals to be independent at home Objective Patient Orientation: Person, Place, Situation Attachments: SCD's, Polar Pack, IV ROM/Strength ROM Lower Extremities left knee extension 0 degrees, flexion 80 degrees Sensory Hearing: Functional Sensation Right Lower Extremit: Intact Sensation Left Lower Extremity: Intact Transfers Roll Left to Right (QC): 6 Sit to Lying (QC): 6 Lying to Sitting/Side of Bed(Q: 6 Sit to Stand (QC): 4 Chair/Jsr-bk-Kbxgo Xfer(QC): 4 Gait Does the Patient Walk?: Yes Mode of Locomotion: Walk Anticipated Mode of Locomotion: Walk Walk 10 feet (QC): 4 Walk 50 ft with 2 Turns(QC): 4 Distance: 120' Gait Assistive Device: FWW Comments/Gait Description slow but steady ambulation, good step through Balance Sitting Static: Normal Sitting Dynamic: Normal Standing Static: Good Standing Dynamic: Good Treatment LLE total knee protocol x10 (AP, QS, HS, SAQ, SLR) Assessment/Needs Patient in bed post tx with nurse call, phone, ramsey, SCD's on, polar care on. Patient has impaired mobility, ROM. Good ambulation for first time. Rehab Potential: Fair PT Advertising Sales Manager Goals Advertising Sales Manager Goals PT Longterm Goals Time Frame: Mar 18, 2022 Roll Left & Right (QC): 6 Sit to Lying (QC): 6 Lying-Sitting on Side/Bed(QC): 6 Sit to Stand (QC): 6 Chair/Wnn-bc-Myedi Xfer(QC): 6 Walk 10 feet (QC): 6 Walk 50ft with 2 Turns (QC): 6 Walk 150 ft (QC): 6 PT Plan Problem List Problem List: Activity Tolerance, Functional Strength, Safety, Balance, Gait, Transfer, Bed Mobility, ROM Treatment/Plan Treatment Plan: Continue Plan of Care Treatment Plan: Bed Mobility, Education, Functional Activity Wilmer, Functional Strength, Gait, Safety, Therapeutic Exercise, Transfers Treatment Duration: Mar 18, 2022 Frequency: 11 times per week Estimated Hrs Per Day: .25 hour per day Patient and/or Family Agrees t: Yes Safety Risks/Education Patient Education: Gait Training, Transfer Techniques, Correct Positioning, Safety Issues Teaching Recipient: Patient Teaching Methods: Demonstration, Discussion Response to Teaching: Reinforcement Needed Discharge Recommendations Plan Patient will perform bed mobility and transfer training, balance and endurance training, functional strengthening, stair training, gait training, and e ducation, to improve functional mobility and independence at home. Therapy Discharge Recommendati: Home & Family, Post Acute PT Time/GCodes Time In: 1308 Time Out: 1320 Total Billed Treatment Time: 12 Total Billed Treatment 1 visit CHANTALE 12' MARTA GRACE PT Mar 11, 2022 13:42
[2022-03-11] MEDS: CEFUROXIME INJECTION 750 MG in NS (IVPB) 50 ML IV SCH (16:30)
[2022-03-11] MEDS: inSUlin ASPART (NovoLOG) 1 UNIT/0.01 ML (CHARGE PER UNIT) SC SCH ×2 (16:30→20:26)
--- NOTE | 2022-03-11 17:47 | OPERATIVE REPORT ---
DATE OF SERVICE: 03/11/2022 PREOPERATIVE DIAGNOSIS: Left knee primary osteoarthritis. POSTOPERATIVE DIAGNOSES: Left knee primary osteoarthritis. PROCEDURE: Left total knee arthroplasty. SURGEON: Luis Lu MD OPENSTACK DEVELOPER: Temo Tamayo, who assisted throughout the procedure and closed the incision. ANESTHESIA: General endotracheal by Dr. Rondon. TOURNIQUET TIME: Approximately 63 minutes at 300 mmHg. ESTIMATED BLOOD LOSS: Minimal. DRAINS: None. COMPLICATIONS: None. POSTOPERATIVE PLAN: Routine protocol. The patient was transferred to the recovery room awake and stable condition. MATERIALS: Microport cemented size 5 femur, cemented size 5 tibia with 10 mm insert and cemented size 29 patellar button. STATEMENT OF MEDICAL NECESSITY: The patient is a 62-year-old female with longstanding progressive left knee pain. Radiographs revealed severe tricompartmental osteoarthritis. She has undergone treatment with injections, anti-inflammatories and rest without relief. Due to functional impairment and failure to improve with conservative measures, the patient elected to proceed with surgical intervention. DESCRIPTION OF PROCEDURE: After risks and benefits of the procedure were discussed and questions were answered, an informed consent was signed and placed on chart, the operative site was confirmed in the preoperative holding area initialed by the surgeon. The patient was then transferred to the operating room and after adequate levels of general endotracheal anesthetic were obtained, a timeout was called, confirming the operative site. The left lower extremity was prepped and draped in the usual sterile fashion after timeout had been performed. With the leg elevated and the knee flexed, tourniquet was inflated to 300 mmHg. Standard anterior approach was utilized. Hemostasis was obtained with cautery. A medial parapatellar arthrotomy was performed leaving 1 cm cuff on the patella for later reattachment. A portion of the fat pad was resected. A subperiosteal release was performed on the proximal medial tibia being careful to stay on the bony surface. The ACL was resected. Intramedullary guide was passed into the femoral canal. The distal cutting block was placed, and distal cut was made. The femur was sized to a size 5, the 5 cutting block was placed parallel to the epicondylar axis and cuts were made from posterior to anterior. A subperiosteal release was then carefully performed on the posterior distal femur, being careful to stay on the bony surface. The intramedullary guide was passed into the tibia. The drop chung transected the intermalleolar axis. After the cutting block had been placed and the cut was made, the 5 baseplate was placed. The drop chung transected the intermalleolar axis, and this was prepared with the drill and keel punch. The patella was then prepared by resecting 10 mm off the undersurface. The peg guide was placed, and the peg holes were drilled. The trials were inserted with a 10 mm insert and 29 patellar button. The trochlear cut was made on the femur. The knee was taken through range of motion. Full extension was easily obtained under 20 degrees of flexion with gravity was easily obtained. The patella tracked well. There was no anterior/posterior or medial/lateral laxity in flexion or extension. The trials were removed. The bone ends were irrigated with pulse lavage. The periarticular block was placed in the posterior capsule, medial and lateral retinaculum extensor mechanism. The bone ends were further irrigated. Tibial baseplate was cemented into position. Excessive cement was removed. The superior surface was irrigated and dried and the polyethylene insert was placed. Distal femur was irrigated and dried and the femoral prosthesis was placed. Excessive cement was removed, and the knee was brought out into full extension and held until the cement had cured. The undersurface of patella was irrigated and dried and the patellar button was cemented into position. Once the cement had cured, the knee was taken through a range of motion. Full extension was easily obtained, 120 degrees of flexion with gravity was easily obtained. The patella tracked well. There was no anterior/posterior or medial/lateral laxity in flexion or extension. The joint was further irrigated with pulse lavage. The arthrotomy was closed with #2 Tevdek in fixskj-jz-ejfgi interrupted fashion. The knee was flexed. The repair was stable. Subcutaneous tissues were irrigated using a total of 6 liters throughout the procedure. A 0 Vicryl was used to deep subcutaneous layer, 2-0 Vicryl for the superficial subcutaneous layer, bruna used on the skin. A soft dressing was applied, and the patient was transferred to the recovery room awake and stable condition. The tourniquet was deflated after dressing application. Job ID: [id number] DocumentID: [id number] Dictated Date: 03/11/2022 09:10:32 Transfer Professor Date: 03/11/2022 17:47:25 Dictated By: LUIS LU MD
[2022-03-11] MEDS: SPIRONOLACTONE 100 MG (ALDACTONE) TABLET PO SCH (20:26)
[2022-03-11] MEDS: ALLOPURINOL 100 MG (ZYLOPRIM) TAB PO SCH (20:26)
[2022-03-11] MEDS ORDERED: SPIRONOLACTONE 100 MG PO SCH (21:00)
[2022-03-11] MEDS: oxyCODONE/APAP 5/325MG (PERCOCET 5) TABLET PO PRN (22:24)
[2022-03-12] VITALS (7 sets, daily range): BP systolic 137–175; BP diastolic 63–75
[2022-03-12] MEDS: CEFUROXIME INJECTION 750 MG in NS (IVPB) 50 ML IV SCH (00:34)
[2022-03-12] MEDS: NS IV 1000 ML 1,000 ML IV SCH ×2 (00:36→08:14)
[2022-03-12 05:50] LABS: HEMOGLOBIN 11.5 g/dL (11.5-16.0)
[2022-03-12] MEDS: LEVOTHYROXINE 125 MCG (LEVOTHROID) TABLET PO SCH (06:11)
[2022-03-12] MEDS: MULTIVIT W/MINERALS TAB (THERAGRAN M) PO SCH (06:11)
[2022-03-12] MEDS: inSUlin ASPART (NovoLOG) 1 UNIT/0.01 ML (CHARGE PER UNIT) SC SCH ×4 (06:11→20:45)
[2022-03-12] MEDS: oxyCODONE/APAP 5/325MG (PERCOCET 5) TABLET PO PRN ×6 (06:12→20:50)
--- NOTE | 2022-03-12 07:49 | Progress Note ---
Standard Progress Note Progress Notes/Assess & Plan Date Seen by a Provider: Mar 12, 2022 Time Seen by a Provider: 07:48 Progress/Assessment & Plan post op check no complaints radiographs--HW well positioned without fracture LLE--2 plus DP pulse with brisk cap refill, Intact sensation to light touch throughout intact DF and PF of toes and ankle s/p L TKA mobilize as able Final Diagnosis more discomfort today Laboratory Tests Test 03/11/22 15:42 03/11/22 20:12 03/12/22 05:23 03/12/22 06:04 Range/Units Glucometer 143 H 112 H 174 H 70-110 MG/DL Hemoglobin 11.5 # 11.5-16.0 g/dL Hematocrit 34 L 35-52 % Vital Signs Date Time Temp Pulse Resp B/P (MAP) Pulse Ox O2 Delivery O2 Flow Rate FiO2 03/12/22 07:46 37.0 93 18 155/72 (99) 95 Room Air 03/12/22 06:42 36.2 03/12/22 06:12 36.2 03/12/22 03:52 36.2 81 20 175/75 (108) 99 NIV CPAP 03/12/22 00:03 36.2 80 20 140/63 (88) 97 NIV CPAP 03/11/22 22:54 36.1 03/11/22 22:24 36.1 03/11/22 20:00 Nasal Cannula 3.00 03/11/22 19:27 36.1 81 18 133/83 (100) 98 Room Air 03/11/22 17:58 20 03/11/22 15:39 35.7 72 20 130/65 (86) 97 Room Air 03/11/22 11:43 16 03/11/22 11:43 36.6 16 03/11/22 11:23 36.4 76 18 148/64 (92) 95 Room Air 03/11/22 10:11 36.7 84 18 153/67 (95) 96 Room Air 03/11/22 10:10 37.1 12 147/69 (95) 95 Room Air 03/11/22 10:05 Room Air 03/11/22 09:50 15 152/67 (95) 97 Room Air 03/11/22 09:50 Room Air 03/11/22 09:40 13 156/66 (96) 97 OxyMask 3.00 8/10/22 09:35 OxyMask 3.00 03/11/22 09:30 14 159/73 (101) 99 OxyMask 3.00 03/11/22 09:20 OxyMask 8 03/11/22 09:20 16 157/72 (100) 100 OxyMask 8 03/11/22 09:10 12 159/76 (103) 100 OxyMask 8 03/11/22 09:07 OxyMask 8 03/11/22 09:07 36.6 16 170/80 (110) 100 OxyMask 8 I & O 03/12/22 07:00 Intake Total 3790 ml Output Total 1650 ml Balance 2140 ml LLE--dressing intact NVI distally. No calf tenderness. Neg Cliff's s/p LTKA doing well PT/OT MADELYN LU MD Mar 12, 2022 07:49
[2022-03-12] MEDS: SPIRONOLACTONE 100 MG (ALDACTONE) TABLET PO SCH ×2 (08:13→20:48)
[2022-03-12] MEDS: ALLOPURINOL 100 MG (ZYLOPRIM) TAB PO SCH ×2 (08:13→20:44)
[2022-03-12] MEDS: ENOXAPARIN INJECTION 30 MG/0.3 ML SYR SC SCH ×2 (08:13→20:45)
[2022-03-12] MEDS: ASPIRIN E.C. 81 MG (ECOTRIN) TAB PO SCH (08:13)
[2022-03-12] MEDS: MONTELUKAST 10 MG (SINGULAIR) TAB PO SCH (08:14)
[2022-03-12] MEDS: LOSARTAN 50 MG (COZAAR) TAB PO SCH (08:14)
[2022-03-12] MEDS: SENNA W/DOCUSATE (SENOKOT S) TABLET PO SCH ×2 (08:14→20:44)
[2022-03-12] MEDS ORDERED: NON-FORMULARY MEDICATION 1 EA EA (Liothyronine Sodium 5 MCG) PO SCH (09:00)
[2022-03-12] MEDS ORDERED: MULTIVIT W/MINERALS TAB (THERAGRAN M) PO SCH (09:00)
--- NOTE | 2022-03-12 09:14 | Occupational Therapy Eval ---
OT Evaluation-General/PLF Medical Diagnosis Admission Date Mar 11, 2022 at 05:52 Medical Diagnosis: left TKA Onset Date: Mar 11, 2022 Therapy Diagnosis Therapy Diagnosis: reduced adl status Height/Weight Height (Feet): 5 Height (Inches): 4.00 Weight (Pounds): 192 Weight (Ounces): 8.0 Precautions Precautions/Isolations: Fall Prevention, Standard Precautions Referral Physician: Roni Referral Reason: Evaluation/Treatment Medical History Pertinent Medical History: DM, OA Current History s/p L TKA, post op day 1. Per patient, she lives with spouse in a single story home, 2 steps to enter. She was indep with adls and iadls prior to admission. Pt was working at [employer] but does not believe she will be returning post discharge. She was not using any AD at baseline but states that a friend has loaned her a walker to use once she returns home. Reviewed History: Yes Social History Home: Single Level Current Living Status: Spouse Entry Into Home: Stairs Without Railing Steps Into Home: 2 ADL-Prior Level of Function SCALE: Activities may be completed with or without assistive devices. 2-Lftvlyyvup-pvcrrkg completes the activity by him/herself with no assistance from a helper. 5-Set-up or Clean-up Assistance-helper sets up or cleans up; patient completes activity. [place] assists only prior to or following the activity. 4-Supervision or Touching Assistance-helper provides verbal cues and/or touching/steadying and/or contact guard assistance as patient completes activity. Assistance may be provided throughout the activity or intermittently. 3-Partial/Moderate Assistance-helper does LESS THAN HALF the effort. [place] lifts, holds or supports trunk or limbs, but provides less than half the effort. 2-Substantial/Maximal Assistance-helper does MORE THAN HALF the effort. [place] lifts or holds trunk or limbs and provides more than half the effort. 8-Gjpimucdp-owjlcs does ALL the effort. Patient does none of the effort to complete the activity. Or, the assistance of 2 or more helpers is required for the patient to complete the activity. If activity was not attempted, code reason: 7-Patient Refused. 9-Not Applicable-not attempted and the patient did not perform the activity before the current illness, exacerbation or injury. 10-Not Attempted due to Environmental Limitations-(lack of equipment, weather restraints, etc.). 88-Not Attempted due to Medical Conditions or Safety Concerns. Self Care: Independent Functional Cognition: Independent DME/Equipment: Shower (built in shower seat), Tub/Shower Drive Self: Yes OT Current Status Subjective Pt reports pain as 8/10 in L knee. Appearance Pt left sitting in recliner, all needs within reach at OT departure. Mental Status/Objective Patient Orientation: Person, Place, Situation Attachments: IV Current Glasses/Contacts: Yes Hearing Aids: No Dentures/Partials: No Hand Dominance: Right ADL-Treatment Eating (QC): 6 Oral Hygiene (QC): 5 (per clinical judgment) On/Off Footwear (QC): 3 Toileting Hygiene (QC): 4 Pt transferring to side of bed at OT arrival (SALES LEADER present). Requesting to use commode. Able to stand and transfer with SBA and use of walker. Pt able to perform jacques care with set up only. Due to only wearing a gown, clothing management not performed. Anticipate no difficulty with task as Pt is able to d emonstrate ability to maintain balance with zero UE support. She ambulated ~15 feet with walker and SBA for management of IV pole. Slow but steady gait. Min- mod a to don socks secondary to pain. OT educated pt on AE, however anticipate that once pain subsides and range in knee improves, ease of task should improve. Pt also reports that her spouse will be able to assist if needed. Pt may benefit from short term OT to address ADLs, energy conservation, and overall endurance/strength. Education OT Patient Education: Correct positioning, Energy conservation, Modified ADL techniques, Purpose of tx/functional activities, Safety issues, Transfer techniques, Use of adapted equipment Teaching Recipient: Patient Teaching Methods: Demonstration, Discussion Response to Teaching: Verbalize Understanding, Return Demonstration, Reinforcement Needed OT Network Security Architect Goals Network Security Architect Goals Time Frame: Mar 17, 2022 Oral Hygiene (QC): 6 Toileting Hygiene (QC): 6 Upper Body Dressing (QC): 5 Lower Body Dressing (QC): 5 On/Off Footwear (QC): 4 1=Demonstrate adherence to instructed precautions during ADL tasks. 2=Patient will verbalize/demonstrate understanding of assistive devices/modifications for ADL. 3=Patient will improve strength/tolerance for activity to enable patient to perform ADL's. OT Education/Plan Problem List/Assessment Assessment: Decreased Activ Tolerance, Impaired Funct Balance, Impaired I ADL's, Impaired Self-Care Skills Discharge Recommendations Plan/Recommendations: Continue POC Therapy Discharge Recommendati: Home & Family Treatment Plan/Plan of Care Treatment,Training & Education: Yes Patient would benefit from OT for education, treatment and training to promote independence in ADL's, mobility, safety and/or upper extremity function for ADL's. Plan of Care: ADL Retraining, Functional Mobility, UE Funct Exercise/Act Treatment Duration: Mar 17, 2022 Frequency: 5 times per week Estimated Hrs Per Day: .25 hour per day Agreement: Yes Rehab Potential: Good Time/GCodes Start Time: 08:45 Stop Time: 09:00 Total Time Billed (hr/min): 15 Billed Treatment Time 1 visit Maria E Carrera OT Mar 12, 2022 09:14
--- NOTE | 2022-03-12 10:02 | Physical Therapy Daily Note ---
PT Daily Note-Current Subjective Patient agrees to PT. Pain Numeric Pain Scale: 5-Moderate Pain Location: Left Location Body Site: Knee Pain Description: Acute Mental Status Patient Orientation: Normal For Age Attachments: IV Transfers SCALE: Activities may be completed with or without assistive devices. 0-Rkafehurcs-zsevgms completes the activity by him/herself with no assistance from a helper. 5-Set-up or Clean-up Assistance-helper sets up or cleans up; patient completes activity. [place] assists only prior to or following the activity. 4-Supervision or Touching Assistance-helper provides verbal cues and/or touching/steadying and/or contact guard assistance as patient completes activity. Assistance may be provided throughout the activity or intermittently. 3-Partial/Moderate Assistance-helper does LESS THAN HALF the effort. [place] lifts, holds or supports trunk or limbs, but provides less than half the effort. 2-Substantial/Maximal Assistance-helper does MORE THAN HALF the effort. [place] lifts or holds trunk or limbs and provides more than half the effort. 2-Wklkxfqtg-dorkyw does ALL the effort. Patient does none of the effort to complete the activity. Or, the assistance of 2 or more helpers is required for the patient to complete the activity. If activity was not attempted, code reason: 7-Patient Refused. 9-Not Applicable-not attempted and the patient did not perform the activity before the current illness, exacerbation or injury. 10-Not Attempted due to Environmental Limitations-(lack of equipment, weather restraints, etc.). 88-Not Attempted due to Medical Conditions or Safety Concerns. Sit to Stand (QC): 5 Weight Bearing Left Lower Extremity: Left Weight Bearing/Tolerated Gait Training Distance: 250' Walk 10 feet (QC): 4 Walk 50 ft with 2 Turns(QC): 4 Walk 150 ft (QC): 4 Gait Assistive Device: FWW steady/antalgic Exercises Seated Therapy Exercises: Ankle pumps, Long arc quads Seated Reps: 15 Assessment Patient's AROM left knee flexion in sit 90 degrees. Patient highly motivated with progress. Continue to increase activity as tolerated by patient. PT Fpc Goals Fpc Goals PT Pipe And Test Supervisor Goals Time Frame: Mar 18, 2022 Roll Left & Right (QC): 6 Sit to Lying (QC): 6 Lying-Sitting on Side/Bed(QC): 6 Sit to Stand (QC): 6 Chair/Lno-qj-Ynjrc Xfer(QC): 6 Walk 10 feet (QC): 6 Walk 50ft with 2 Turns (QC): 6 Walk 150 ft (QC): 6 PT Plan Treatment/Plan Treatment Plan: Continue Plan of Care Treatment Plan: Bed Mobility, Education, Functional Activity Wilmer, Functional Strength, Gait, Safety, Therapeutic Exercise, Transfers Treatment Duration: Mar 18, 2022 Frequency: 11 times per week Estimated Hrs Per Day: .25 hour per day Patient and/or Family Agrees t: Yes Time/GCodes Time In: 908 Time Out: 923 Total Billed Treatment Time: 15 Total Billed Treatment 1 visit FA 15 min JERMAINE CALHOUN PT Mar 12, 2022 10:02
--- NOTE | 2022-03-12 13:08 | Anesthesia-General Post-Op ---
General Patient Condition Mental Status/LOC: Same as Preop Cardiovascular: Satisfactory Nausea/Vomiting: Absent Respiratory: Satisfactory Pain: Controlled Complications: Absent Post Op Complications Complications None Follow Up Care/Instructions Patient Instructions None needed. Anesthesia/Patient Condition Patient Condition Patient is doing well, no complaints, stable vital signs, no apparent adverse anesthesia problems. No complications reported per nursing. HAIDER NEWSOME CRNA Mar 12, 2022 13:08
--- NOTE | 2022-03-12 14:28 | Physical Therapy Daily Note ---
PT Daily Note-Current Subjective Patient agrees to PT. Pain Numeric Pain Scale: 8 Location: Left Location Body Site: Knee Pain Description: Acute Comment: MAINTENANCE MANAGER and pain medication requested to RN Mental Status Patient Orientation: Normal For Age Attachments: IV Transfers SCALE: Activities may be completed with or without assistive devices. 0-Nvwmtwtxyb-osftufm completes the activity by him/herself with no assistance from a helper. 5-Set-up or Clean-up Assistance-helper sets up or cleans up; patient completes activity. [place] assists only prior to or following the activity. 4-Supervision or Touching Assistance-helper provides verbal cues and/or touching/steadying and/or contact guard assistance as patient completes activity. Assistance may be provided throughout the activity or intermittently. 3-Partial/Moderate Assistance-helper does LESS THAN HALF the effort. [place] lifts, holds or supports trunk or limbs, but provides less than half the effort. 2-Substantial/Maximal Assistance-helper does MORE THAN HALF the effort. [place] lifts or holds trunk or limbs and provides more than half the effort. 8-Hmovogwpt-louczb does ALL the effort. Patient does none of the effort to complete the activity. Or, the assistance of 2 or more helpers is required for the patient to complete the activity. If activity was not attempted, code reason: 7-Patient Refused. 9-Not Applicable-not attempted and the patient did not perform the activity before the current illness, exacerbation or injury. 10-Not Attempted due to Environmental Limitations-(lack of equipment, weather restraints, etc.). 88-Not Attempted due to Medical Conditions or Safety Concerns. Sit to Lying (QC): 6 Lying to Sitting/Side of Bed(Q: 6 Sit to Stand (QC): 6 Toilet Transfer (QC): 6 Weight Bearing Left Lower Extremity: Left Weight Bearing/Tolerated Gait Training Distance: 15' x 2 Walk 10 feet (QC): 6 Gait Assistive Device: FWW step to gait sequence Exercises Supine Ex: Ankle pumps, Quad Set, Heel Slides, Straight leg raise Supine Reps: 15 (x 2 sets) Assessment Current Status: Excellent Progress Patient progressing with treatment plan. Continue to increase activity and ROM as tolerated by patient. AROM in supine left knee flexion 70%. Plan dismissal tomorrow after PT. PT Shelter Goals Wellness Ambassador Goals PT Shelter Goals Time Frame: Mar 18, 2022 Roll Left & Right (QC): 6 Sit to Lying (QC): 6 Lying-Sitting on Side/Bed(QC): 6 Sit to Stand (QC): 6 Chair/Wug-hu-Nffhc Xfer(QC): 6 Walk 10 feet (QC): 6 Walk 50ft with 2 Turns (QC): 6 Walk 150 ft (QC): 6 PT Plan Treatment/Plan Treatment Plan: Continue Plan of Care Treatment Plan: Bed Mobility, Education, Functional Activity Wilmer, Functional Strength, Gait, Safety, Therapeutic Exercise, Transfers Treatment Duration: Mar 18, 2022 Frequency: 11 times per week Estimated Hrs Per Day: .25 hour per day Patient and/or Family Agrees t: Yes Time/GCodes Time In: 1325 Time Out: 1343 Total Billed Treatment Time: 18 Total Billed Treatment 1 visit EX 18 min JERMAINE CALHOUN PT Mar 12, 2022 14:28
[2022-03-13 03:01] VITALS: BP 137/75
[2022-03-13] MEDS: oxyCODONE/APAP 5/325MG (PERCOCET 5) TABLET PO PRN ×2 (03:17→09:21)
[2022-03-13] MEDS: NS IV 1000 ML 1,000 ML IV SCH (03:17)
[2022-03-13 05:21] LABS: HEMOGLOBIN 10.8 g/dL (11.5-16.0)
--- NOTE | 2022-03-13 05:36 | DISCHARGE SUMMARY ---
DATE OF SERVICE: DIAGNOSES: 1. Left knee primary osteoarthritis. 2. Echo's hypothyroidism. 3. Asthma. PROCEDURE: Left total knee arthroplasty. SUMMARY: The patient is a 62-year-old female who underwent a left total knee arthroplasty on the day of admission. Postoperatively, she did well. At time of discharge, her wound was clean and dry. She had no calf tenderness. Negative Cliff sign. She was tolerating diet well and tolerating pain with oral pain medication. CONDITION AT DISCHARGE: Good. DISCHARGE DIET: Regular. FOLLOWUP: Followup is in three weeks. ACTIVITIES: Weightbearing as tolerated with a walker. DISCHARGE MEDICATIONS: Home medications, Percocet as needed for pain and aspirin for 30 days. Job ID: [id number] DocumentID: [id number] Dictated Date: 03/12/2022 07:52:35 Photocomposition Keyboard Operator Date: 03/13/2022 05:35:35 Dictated By: MADELYN LU MD
[2022-03-13] MEDS: inSUlin ASPART (NovoLOG) 1 UNIT/0.01 ML (CHARGE PER UNIT) SC SCH (06:36)
[2022-03-13] MEDS: MULTIVIT W/MINERALS TAB (THERAGRAN M) PO SCH (06:36)
[2022-03-13] MEDS: LEVOTHYROXINE 125 MCG (LEVOTHROID) TABLET PO SCH (06:36)
--- NOTE | 2022-03-13 07:07 | Progress Note ---
Standard Progress Note Progress Notes/Assess & Plan Date Seen by a Provider: Mar 13, 2022 Time Seen by a Provider: 07:05 Progress/Assessment & Plan post op check no complaints radiographs--HW well positioned without fracture LLE--2 plus DP pulse with brisk cap refill, Intact sensation to light touch throughout intact DF and PF of toes and ankle s/p L TKA mobilize as able Final Diagnosis no complaints Vital Signs Date Time Temp Pulse Resp B/P (MAP) Pulse Ox O2 Delivery O2 Flow Rate FiO2 03/13/22 03:47 36.8 03/13/22 03:17 36.8 03/13/22 03:01 36.8 90 20 137/75 (95) 98 Room Air 03/12/22 23:21 36.6 98 20 169/72 (104) 99 Room Air 03/12/22 21:20 36.7 03/12/22 20:50 36.7 03/12/22 20:00 Room Air 03/12/22 20:00 36.7 95 20 137/75 (95) 95 Room Air 03/12/22 15:31 36.9 99 20 137/67 (90) 97 Room Air 03/12/22 11:16 36.4 85 18 156/72 (100) 93 Room Air 03/12/22 08:00 Room Air 03/12/22 07:46 37.0 93 18 155/72 (99) 95 Room Air I & O 03/13/22 07:00 Intake Total 1300 ml Output Total 2200 ml Balance -900 ml Laboratory Tests Test 03/12/22 11:12 03/12/22 15:25 03/12/22 19:57 03/13/22 05:07 Range/Units Glucometer 212 H 146 H 176 H 70-110 MG/DL Hemoglobin 10.8 L 11.5-16.0 g/dL Hematocrit 31 L 35-52 % Test 03/13/22 05:19 Range/Units Glucometer 189 H 70-110 MG/DL LLE--incision clean and dry. No calf tenderness. Neg Cliff's s/p LTKA doing well DC after PT today MADELYN LU MD Mar 13, 2022 07:07
[2022-03-13] MEDS ORDERED: morphine INJ 4 MG/ML 1 ML (VIAL/SYRINGE) IVP PRN (07:15)
[2022-03-13 07:58] VITALS: BP 155/69
[2022-03-13] MEDS: ENOXAPARIN INJECTION 30 MG/0.3 ML SYR SC SCH (08:00)
--- NOTE | 2022-03-13 09:15 | Physical Therapy Daily Note ---
PT Daily Note-Current Subjective Patient agrees to PT. Pain Numeric Pain Scale: 7 Location: Left Location Body Site: Knee Pain Description: Acute Mental Status Patient Orientation: Normal For Age Transfers SCALE: Activities may be completed with or without assistive devices. 1-Rkhjktbfhu-yodtudv completes the activity by him/herself with no assistance from a helper. 5-Set-up or Clean-up Assistance-helper sets up or cleans up; patient completes activity. [place] assists only prior to or following the activity. 4-Supervision or Touching Assistance-helper provides verbal cues and/or touching/steadying and/or contact guard assistance as patient completes activity . Assistance may be provided throughout the activity or intermittently. 3-Partial/Moderate Assistance-helper does LESS THAN HALF the effort. [place] lifts, holds or supports trunk or limbs, but provides less than half the effort. 2-Substantial/Maximal Assistance-helper does MORE THAN HALF the effort. [place] lifts or holds trunk or limbs and provides more than half the effort. 1-Biiupjffw-tujswc does ALL the effort. Patient does none of the effort to complete the activity. Or, the assistance of 2 or more helpers is required for the patient to complete the activity. If activity was not attempted, code reason: 7-Patient Refused. 9-Not Applicable-not attempted and the patient did not perform the activity before the current illness, exacerbation or injury. 10-Not Attempted due to Environmental Limitations-(lack of equipment, weather restraints, etc.). 88-Not Attempted due to Medical Conditions or Safety Concerns. Lying to Sitting/Side of Bed(Q: 6 Sit to Stand (QC): 6 Chair/Niy-bt-Mdnmb Xfer(QC): 6 Toilet Transfer (QC): 6 Weight Bearing Left Lower Extremity: Left Weight Bearing/Tolerated Gait Training Distance: 275' Walk 10 feet (QC): 6 Walk 50 ft with 2 Turns(QC): 6 Walk 150 ft (QC): 6 Gait Assistive Device: FWW slow, steady, step to gait sequence with occasional reciprocal pattern. Exercises Supine Ex: Ankle pumps, Quad Set, Heel Slides, Straight leg raise Supine Reps: 15 Seated Therapy Exercises: Long arc quads Seated Reps: 15 Assessment Patient continues to progress with treatment plan and will dismiss to home on this date. Patient declined to perform stairs on this date. PT to dismiss patient at this time. PT Nursing Home Goals [address] Goals PT Nursing Home Goals Time Frame: Mar 18, 2022 Roll Left & Right (QC): 6 Sit to Lying (QC): 6 Lying-Sitting on Side/Bed(QC): 6 Sit to Stand (QC): 6 Chair/Hty-wa-Pgkqd Xfer(QC): 6 Walk 10 feet (QC): 6 Walk 50ft with 2 Turns (QC): 6 Walk 150 ft (QC): 6 PT Plan Treatment/Plan Treatment Plan: Discontinue PT, goals met Treatment Plan: Bed Mobility, Education, Functional Activity Wilmer, Functional Strength, Gait, Safety, Therapeutic Exercise, Transfers Treatment Duration: Mar 18, 2022 Frequency: 11 times per week Estimated Hrs Per Day: .25 hour per day Patient and/or Family Agrees t: Yes Time/GCodes Time In: 720 Time Out: 744 Total Billed Treatment Time: 24 Total Billed Treatment 1 visit EX 13 min GT 11 min JERMAINE CALHOUN PT Mar 13, 2022 09:15
[2022-03-13] MEDS: SPIRONOLACTONE 100 MG (ALDACTONE) TABLET PO SCH (09:21)
[2022-03-13] MEDS: LOSARTAN 50 MG (COZAAR) TAB PO SCH (09:22)
[2022-03-13] MEDS: ASPIRIN E.C. 81 MG (ECOTRIN) TAB PO SCH (09:22)
[2022-03-13] MEDS: MONTELUKAST 10 MG (SINGULAIR) TAB PO SCH (09:22)
[2022-03-13] MEDS: SENNA W/DOCUSATE (SENOKOT S) TABLET PO SCH (09:22)
[2022-03-13] MEDS: ALLOPURINOL 100 MG (ZYLOPRIM) TAB PO SCH (09:22)
== END 2022-03-13 09:40 | disposition home health service (06) | DRG 470 ==
LOC: 4TH 05:52 → SURG 05:53 → 4TH 11:01
PROVIDERS: ADMIT Orthopaedic Surgery; ATTEND Orthopaedic Surgery
PROC: 0SRD0J9 Replacement of Left Knee Joint with Synthetic Substitute, Cemented, Open Approach (ICD-10-PCS; principal; 2022-03-11 07:30)
PROC: 5A09357 Assistance with Respiratory Ventilation, Less than 24 Consecutive Hours, Continuous Positive Airway Pressure (ICD-10-PCS; 2022-03-12)
DX: M17.12 Unilateral primary osteoarthritis, left knee (principal); E03.9 Hypothyroidism, unspecified; E11.9 Type 2 diabetes mellitus without complications; I10 Essential (primary) hypertension; E06.3 Autoimmune thyroiditis; J45.909 Unspecified asthma, uncomplicated
CPT/HCPCS: 36415; 73560; 82947; 85014; 85018; 86850; 86900; 86901

== ENCOUNTER → 2022-06-12 | Outpatient (CLI) | payer BC ==
--- NOTE | 2022-06-12 12:38 | Diagnostic Imaging Report ---
Indication: Routine screening. Comparison is made with prior mammogram 10/01/2017. 2-D and 3-D bilateral screening mammography was performed with CAD. CAD is utilized. The current study was also evaluated with a Computer Aided Detection (CAD) system. Both breasts are heterogeneously dense, limiting the sensitivity of mammography. The parenchymal pattern is stable. No mass or malignant-appearing microcalcifications are seen. There are benign calcifications present. Axillae are unremarkable. IMPRESSION: BI-RADS Category 2 No mammographic features suspicious for malignancy are identified. ACR BI-RADS Category 2: Benign findings. Result letter will be mailed to the patient. Note: At least 10% of breast cancer is not imaged by mammography. Dictated by: Dictated on workstation # [id number]
== END ==
LOC: RAD 10:30
PROVIDERS: ATTEND Nurse Practitioner Family
DX: Z12.31 Encounter for screening mammogram for malignant neoplasm of breast (principal)
CPT/HCPCS: 77063; 77067

== ENCOUNTER 2022-06-24 08:11 | Outpatient (CLI) | payer BC ==
[~2022-06-24] VITALS: Ht 162.5 cm; Wt 90.5 kg
[2022-06-24 09:58] LABS: BASOPHILS # (AUTO) 0.1 10^3/uL (0.0-0.1); BASOPHILS % (AUTO) 1 % (0-10); EOSINOPHILS # (AUTO) 0.4 10^3/uL (0.0-0.3); EOSINOPHILS % (AUTO) 5 % (0-10); HEMATOCRIT 42 % (35-52); HEMOGLOBIN 14.6 g/dL (11.5-16.0); LYMPHOCYTES % (AUTO) 25 % (12-44); MEAN CORPUSCULAR HEMOGLOBIN 32 pg (25-34); MEAN CORPUSCULAR HGB CONC 35 g/dL (32-36); MEAN CORPUSCULAR VOLUME 92 fL (80-99); MEAN PLATELET VOLUME 9.8 fL (9.0-12.2); MONOCYTES # (AUTO) 0.6 10^3/uL (0.0-1.0); MONOCYTES % (AUTO) 7 % (0-12); NEUTROPHILS # (AUTO) 4.9 10^3/uL (1.8-7.8); NEUTROPHILS % (AUTO) 61 % (42-75); PLATELET COUNT 289 10^3/uL (130-400)
[2022-06-24 10:07] LABS: BILIRUBIN,URINE NEGATIVE (NEGATIVE); CLARITY,URINE CLEAR; COLOR,URINE YELLOW; GLUCOSE, URINE (UA) 1+ (NEGATIVE); KETONES,URINE NEGATIVE (NEGATIVE); LEUKOCYTE ESTERASE ,URINE 1+ (NEGATIVE); NITRITE,URINE NEGATIVE (NEGATIVE); PROTEIN,URINE NEGATIVE (NEGATIVE)
[2022-06-24 10:13] LABS: BACTERIA,URINE NEGATIVE /HPF; SQUAMOUS EPITHELIAL CELL,UR 0-2 /HPF
[2022-06-24 10:16] LABS: INR 0.9 (0.8-1.4); PROTHROMBIN TIME PATIENT 13.1 SEC (12.2-14.7)
[2022-06-24 10:17] LABS: ALBUMIN 3.9 GM/DL (3.2-4.5); POTASSIUM 3.9 MMOL/L (3.6-5.0)
[2022-06-24 10:18] LABS: CALCIUM 9.2 MG/DL (8.5-10.1)
[2022-06-24 10:20] LABS: TOTAL PROTEIN 7.5 GM/DL (6.4-8.2)
[2022-06-24 10:21] LABS: BILIRUBIN,TOTAL 0.5 MG/DL (0.1-1.0)
--- NOTE | 2022-06-24 10:21 | Physical Therapy Pre-Op Eval ---
PT Pre-Surgical Assessment Type of Surgery Type of Surgery: Right TKA Prior Level of Function Current Living Status: Spouse Locomotion (Upon Admit): Independent PLOF DME: Front Wheeled Walker, Straight Cane Subjective Home: Single Level Current Living Status: Spouse Entry Into Home: Stairs Without Railing Steps Into Home: 2 Steps Accessories: No Railing Objective Patient AROM in sitting 0 degrees extension - 100 degrees flexion Motor Control Motor Control: Motor Control WNL ROM ROM: WFL Strength Strength: WFL Transfers Transfers (B, C, W/C) (FIM): 6 Gait Gait (FIM): 6 Gait Distance (FIM): 200 Distance: unlimited Gait Assistive Device: None Right Lower Extremity: Right Full Weight Bearing Left Lower Extremity: Left Full Weight Bearing Treatment Rendered Treatment: Patient instructed in assistive device, supported ambulation. Patient instructed in and given written program of ROM and strengthening exercises to be preformed post-op. Patient instructed in movement precautions where applicable. Patient demonstrates understandings of post-operative therapy protocol including gait pattern and exercise program. Pre-operative instruction completed; await physical therapy orders after surgery. Treatment Goal Met: Yes Charges/GCodes Time In: 1010 Time Out: 1024 Total Billed Treatment Time: 14 Total Billed Treatment Visit, MARC Mensah PT Jun 24, 2022 10:21
[2022-06-24 10:23] LABS: CREATININE SERUM 0.79 MG/DL (0.60-1.30)
== END 2022-06-24 14:52 ==
LOC: PREOP 08:11
PROVIDERS: ATTEND Orthopaedic Surgery
DX: Z01.818 Encounter for other preprocedural examination (principal); M17.11 Unilateral primary osteoarthritis, right knee
CPT/HCPCS: 36415; 80053; 81000; 82308; 85025; 85610; 86850; 86900; 86901; 87081; 87088

== ENCOUNTER 2022-07-01 07:53 | Inpatient (IN) | payer BC ==
--- NOTE | 2022-06-24 07:05 | HISTORY AND PHYSICAL ---
DATE OF SERVICE: 07/01/2022 ADMISSION HISTORY AND PHYSICAL DATE OF ADMISSION: 07/01/2022. This will be for inpatient admission on 07/01/2022 for right total knee arthroplasty. The patient will require regular inpatient admission due to comorbidities and need for pain management and need for physical therapy. INDICATION FOR PROCEDURE: The patient is a 62-year-old female with longstanding progressive right knee pain. She has undergone treatment with injections, anti-inflammatories and rest without relief. She reported progressive loss of function. Radiographs revealed severe medial and patellofemoral arthrosis. Due to functional impairment and failure to improve with conservative measures, the patient elected to proceed with surgical intervention. REVIEW OF SYSTEMS: No chest pain, no shortness of breath. No dysuria. PAST MEDICAL HISTORY: Hyperinsulinemia, Echo's hypothyroidism, and asthma. PAST SURGICAL HISTORY: Lumbar spine, hysterectomy, cholecystectomy, left total knee arthroplasty, colonoscopy, and carpal tunnel. FAMILY HISTORY: Significant for hypertension, alcoholism PRIMARY CARE PROVIDER: Dr. Marion Blake. MEDICATIONS: Clobetasol, probiotic, magnesium, aspirin, metformin, vitamin B12, allopurinol, liothyronine, Trulicity, levothyroxine, nystatin, Singulair, spironolactone, losartan, albuterol, Paxlovid, and Aleve. ALLERGIES: No known drug allergies. SOCIAL HISTORY: The patient drinks alcohol occasionally. Denies tobacco use. PHYSICAL EXAMINATION: GENERAL: The patient is well-developed, well-nourished, in no acute distress. HEENT: Normocephalic, atraumatic. Pupils are equal, round and reactive to light. Oropharynx is clear. NECK: Supple, with no lymphadenopathy. LUNGS: Clear to auscultation bilaterally. HEART: Regular rate and rhythm. ABDOMEN: Soft, nontender, and nondistended. EXTREMITIES: The right knee demonstrates varus alignment. She has patellofemoral crepitus and pain with patellar loading. She is tender along the medial femoral epicondyle. She has pain medially with Isaias's. Range of motion is 0/2/120. There is a bony prominence anteromedially, but her patella feels stable to tracking. IMPRESSION: Severe right knee osteoarthritis. PLAN: Right total knee arthroplasty. The risks, benefits, options, ramifications and recovery have been discussed at length with the patient. She understands and wishes to proceed. This will be for inpatient admission on 07/01/2022. Job ID: [id number] DocumentID: [id number] Dictated Date: 06/15/2022 11:00:00 Cyber Security Manager Date: 06/15/2022 11:25:00 Dictated By: MADELYN LU MD
[2022-07-01] VITALS (11 sets, daily range): BP systolic 131–187; BP diastolic 66–83
[~2022-07-01] VITALS: Ht 162.5 cm; Wt 90.5 kg
[2022-07-01] MEDS ORDERED: INTRA-ARTICULAR IU ONE ×5 (08:15)
[2022-07-01] MEDS ORDERED: CEFUROXIME INJECTION 1,500 MG in NS (IVPB) 50 ML IV ONE (08:30)
[2022-07-01] MEDS ORDERED: LACTATED RINGERS 1,000 ML IV PRN (08:30)
[2022-07-01] MEDS ORDERED: MIDAZOLAM 2 MG/2 ML (VERSED) VIAL ONE (08:48)
[2022-07-01] MEDS ORDERED: fentaNYL INJ 100 MCG/2 ML AMP ONE (08:48)
[2022-07-01] MEDS ORDERED: proPOfol 200 MG/20 ML (DIPRIVAN) VIAL IV ONE (08:51)
[2022-07-01] MEDS ORDERED: LIDOCAINE PF 2% 5 ML (XYLOCAINE) VIAL ONE ×2 (08:51→09:39)
--- NOTE | 2022-07-01 09:02 | Progress Note-Pre Operative ---
Pre-Operative Progress Note Date of Available H&P: Jun 15, 2022 Date H&P Reviewed: Jul 01, 2022 Time H&P Reviewed: 07:11 Changes from last HP none Pre-Operative Diagnosis: right knee primary osteoarthritis MADELYN LU MD Jul 01, 2022 09:02
--- NOTE | 2022-07-01 09:03 | Progress Note-Post Operative ---
Post-Operative Progess Note Surgeon (s)/Process Improvement Engineer (s) Surgeon MADELYN LU MD Process Improvement Engineer: Temo Tamayo Pre-Operative Diagnosis right knee primary osteoarthritis Post-Operative Diagnosis right knee primary osteoarthritis Procedure & Operative Findings Date of Procedure 07/01/22 Procedure Performed/Findings right total knee arthroplasty Anesthesia Type GETA Estimated Blood Loss Estimated blood loss (mL): minimal Specimens/Packing Specimens Removed none Packing: none MADELYN LU MD Jul 01, 2022 09:03
--- NOTE | 2022-07-01 09:05 | D/C HH Face to Face Order ---
D/C Face to Face Orders Reconcile Patient Problems Problems Reviewed?: Yes Instructions for Patient Via [facility] [place], Patient Instructions/FollowUp: three weeks Physician to follow Patient: three weeks Discharge Diet for Home: Regular Diet Patient Data-Allergies,Ht & Wt Patient Allergies: Coded Allergies: No Known Drug Allergies (Unverified , 06/24/22) Height (Feet): 5 Height (Inches): 4.00 Weight (Pounds): 192 Weight (Ounces): 8.0 Home Health Need/Face to Face Date of Face to Face: Jul 01, 2022 Clinical Findings: Muscle weakness, Pain with ambulation, Unsteady gait I have seen Pt ntlx-gy-ague: Yes Discharged To: Home Diagnosis/Conditions: right total knee arthroplasty Patient is Homebound due to: Muscle weakness, Pain w/ambulation Homebound Status Due to the above stated illness, injury or surgical procedure (medical condition or diagnosis) and associated clinical findings, the patient is homebound because of his/her inability to leave home except with aid of a supportive device and/or person AND leaving the home requires a considerable and taxing effort or is medically contraindicated. Pt req the following assistanc: Walker Home Health Nursing Orders Home Health Services Order: Physical Therapy-Evaluate & Treat DC right knee bruna and apply steri strips 07/15/22 Therapy Orders Therapy Orders: Physical Therapy, PT to assess for OT Therapy Specific Orders: Eval assistive deivces, Teach enviro modifications/safety, Gait training, Increase strength/endurance, Provider maintenance therapy, Restore ROM Certify Stmt I certify that this patient is under my care and that I, a nurse practitioner or a physician; a malt specifications control assistant working with me, had a face to face encounter that - meets the physician face to face encounter requirements with this patient as dated. MADELYN LU MD Jul 01, 2022 09:05
[2022-07-01] MEDS ORDERED: morphine PCA 100 MG/100 ML BAG IV PRN (09:15)
[2022-07-01] MEDS ORDERED: diphenhydrAMINE 50 MG/ML INJ (BENADRYL) IVP PRN (09:15)
[2022-07-01] MEDS ORDERED: ONDANSETRON 4 MG/2 ML (SDV) Z0FRAN IVP PRN ×2 (09:15→10:45)
[2022-07-01] MEDS ORDERED: LIDOCAINE 2% 20 ML (XYLOCAINE) VIAL ONE (09:39)
[2022-07-01] MEDS ORDERED: ROPIVACAINE 5MG/ML 30ML VIAL ONE (09:39)
[2022-07-01] MEDS ORDERED: HYDROmorphone 2 MG/ML VIAL (DILAUDID) ONE (09:41)
[2022-07-01] MEDS ORDERED: ONDANSETRON 4 MG/2 ML (SDV) Z0FRAN ONE (10:37)
[2022-07-01] MEDS ORDERED: SEVOFLURANE (ULTANE) 15 ML INHAL SOLN ONE (10:37)
[2022-07-01] MEDS ORDERED: TRANEXAMIC ACID 100 MG/ML 10 ML INJECTION ONE (10:37)
--- NOTE | 2022-07-01 10:45 | Anesthesia-General Post-Op ---
General Patient Condition Mental Status/LOC: Same as Preop Cardiovascular: Satisfactory Nausea/Vomiting: Absent Respiratory: Satisfactory Pain: Controlled Complications: Absent Post Op Complications Complications None Follow Up Care/Instructions Patient Instructions None needed. Anesthesia/Patient Condition Patient Condition Patient is doing well, no complaints, stable vital signs, no apparent adverse anesthesia problems. No complications reported per nursing. CHANDLER MEYER CRNA Jul 01, 2022 10:45
--- NOTE | 2022-07-01 11:28 | Progress Note ---
Standard Progress Note Progress Notes/Assess & Plan Date Seen by a Provider: Jul 01, 2022 Time Seen by a Provider: 10:50 Progress/Assessment & Plan post op check no complaints radiographs--Hw well positioned without fracture RLE--2 plus DP pulse with brisk cap refill intact DF and PF of toes and ankle intact sensation to light touch throughout s/p RTKA mobilize as able MADELYN LU MD Jul 01, 2022 11:28
--- NOTE | 2022-07-01 14:19 | Physical Therapy Evaluation ---
PT Evaluation-General Medical Diagnosis Admission Date Jul 01, 2022 at 07:53 Medical Diagnosis: R TKA Onset Date: Jul 01, 2022 Therapy Diagnosis Therapy Diagnosis: Impaired Mobility Height/Weight Height (Feet): 5 Height (Inches): 4.00 Weight (Pounds): 192 Weight (Ounces): 8.0 Precautions Precautions/Isolations: Fall Prevention, Standard Precautions Weight Bear Status Right Lower Extremity: Right Weight Bearing/Tolerated Left Lower Extremity: Left Full Weight Bearing Referral Physician: Roni Reason for Referral: Evaluation/Treatment Medical History Pertinent Medical History: DM, OA Additional Medical History PAST MEDICAL HISTORY: Hyperinsulinemia, Echo's hypothyroidism, and asthma. PAST SURGICAL HISTORY: Lumbar spine, hysterectomy, cholecystectomy, left total knee arthroplasty, colonoscopy, and carpal tunnel. Reviewed History: Yes Social History Home: Single Level Current Living Status: Spouse Entry Into Home: Stairs Without Railing PT Steps Into Home: 2 Prior Prior Level of Function SCALE: Activities may be completed with or without assistive devices. 0-Ciwczqfvsa-aidnpxb completes the activity by him/herself with no assistance from a helper. 5-Set-up or Clean-up Assistance-helper sets up or cleans up; patient completes activity. [place] assists only prior to or following the activity. 4-Supervision or Touching Assistance-helper provides verbal cues and/or touching/steadying and/or contact guard assistance as patient completes activity. Assistance may be provided throughout the activity or intermittently. 3-Partial/Moderate Assistance-helper does LESS THAN HALF the effort. [place] lifts, holds or supports trunk or limbs, but provides less than half the effort. 2-Substantial/Maximal Assistance-helper does MORE THAN HALF the effort. [place] lifts or holds trunk or limbs and provides more than half the effort. 2-Snghbbtbh-padslh does ALL the effort. Patient does none of the effort to complete the activity. Or, the assistance of 2 or more helpers is required for the patient to complete the activity. If activity was not attempted, code reason: 7-Patient Refused. 9-Not Applicable-not attempted and the patient did not perform the activity before the current illness, exacerbation or injury. 10-Not Attempted due to Environmental Limitations-(lack of equipment, weather restraints, etc.). 88-Not Attempted due to Medical Conditions or Safety Concerns. Bed Mobility: 6 Transfers (B,C,W/C): 6 Gait: 6 Stairs: 6 Indoor Mobility (Ambulation): Independent Stairs: Independent PT Evaluation-Current Subjective Patient in bed pre-tx, reports no pain but some soreness in R knee and a bit woozy, agrees to PT. Pt/Family Goals Return to independence at home. Objective Patient Orientation: Person, Place, Situation Attachments: Polar Pack, IV ROM/Strength ROM Lower Extremities LLE WNL, RLE WNL except knee approx 95 degrees flexion, approx 10 degrees from full extension Strength Lower Extremities LLE grossly 4+/5, RLE deferred Neuromuscular (Tone, Coordination, Reflexes) Coordination intact Sensory Vision: Functional Hearing: Functional Sensation Right Lower Extremit: Intact Sensation Left Lower Extremity: Intact Transfers Roll Left to Right (QC): 4 Sit to Lying (QC): 4 Lying to Sitting/Side of Bed(Q: 4 Sit to Stand (QC): 4 Chair/Urj-yl-Vxhhi Xfer(QC): 4 Toilet Transfer (QC): 4 SBA with bed mobility and transfers Gait Does the Patient Walk?: Yes Mode of Locomotion: Walk Anticipated Mode of Locomotion: Walk Walk 10 feet (QC): 4 Walk 50 ft with 2 Turns(QC): 4 Distance: 100' Gait Assistive Device: FWW Comments/Gait Description SBA with ambulation, Patient walking with slow gait speed, decreased foot clearance, slight limp on R, decreased step length. Balance Sitting Static: Normal Sitting Dynamic: Normal Standing Static: Normal Standing Dynamic: Normal Treatment Ambulation, LE Strengthening (AP x20, LAQ x20, Quad Set x20, SLR x20, Heel Sl ides x20) Assessment/Needs Patient walks steady, but is a little woozy still. She was taken to the restroom before ambulating. Patient in recliner post-tx with nurse call, polar pack, phone, tray, all needs met. Rehab Potential: Fair PT Grain And Yeast Plants Supervisor Goals Grain [employer] Plants Supervisor Goals PT G[employer] Plants Supervisor Goals Time Frame: Jul 08, 2022 Roll Left & Right (QC): 6 Sit to Lying (QC): 6 Lying-Sitting on Side/Bed(QC): 6 Sit to Stand (QC): 6 Chair/Sjm-pm-Olgwq Xfer(QC): 6 Toilet Transfer (QC): 6 Walk 10 feet (QC): 6 Walk 50ft with 2 Turns (QC): 6 Walk 150 ft (QC): 6 PT Plan Problem List Problem List: Activity Tolerance, Functional Strength, Safety, Balance, Gait, Transfer, Bed Mobility, ROM Treatment/Plan Treatment Plan: Continue Plan of Care Treatment Plan: Bed Mobility, Education, Functional Activity Wilmer, Functional Strength, Gait, Safety, Therapeutic Exercise, Transfers Treatment Duration: Jul 08, 2022 Frequency: 11 times per week Estimated Hrs Per Day: .25 hour per day Patient and/or Family Agrees t: Yes Safety Risks/Education Patient Education: Gait Training, Transfer Techniques, Correct Positioning, Safety Issues Teaching Recipient: Patient Teaching Methods: Demonstration, Discussion Response to Teaching: Reinforcement Needed Discharge Recommendations Plan Patient will perform bed mobility and transfer training, gait training and functional strengthening, balance and endurance training in order to be independent at home. Therapy Discharge Recommendati: Home & Family, Post Acute PT Time Time In: 1330 Time Out: 1355 DATE: Jul 01, 2022 Total Billed Treatment Time: 25 Total Billed Treatment 1 visit EVL 10' FA 15' MARTA GRACE PT Jul 01, 2022 14:19
--- NOTE | 2022-07-01 15:26 | Consultation - Hospitalist ---
HPI History of Present Illness: HPI/Chief Complaint Pt is a 62yoCF known to me from recent admission over the summer for knee replacement who returned today for TKA on the right. I am seeing her postoperatively and she reports doing well. She has no complaints and that her pain there but well controlled with the FELT CUTTER. Blood pressure slightly elevated but she states she has not had her medications today. She has no other concerns. Source: patient Date Seen 07/01/22 Attending Physician Bhupinder Blake DO PCP Admitting Physician: Luis Hernandez MD Attending Physician: Luis Hernandez MD Referring Physician Date of Admission Jul 01, 2022 at 07:53 Home Medications & Allergies Home Medications Reviewed patient Home Medication Reconciliation performed by pharmacy medication reconciliations data communications technician and/or nursing. Patients Allergies have been reviewed. Allergies Allergies Coded Allergies No Known Drug Allergies (Fqfuzhzyfu67/23/22) Past Qzhrfqr-Akbfuo-Zpjkeo Hx Immunizations Up To Date Date of Influenza Vaccine: Apr 24, 2022 First/Initial COVID19 Vaccinat: 2020 Second COVID19 Vaccination Sammy: 2020 Seasonal Allergies Seasonal Allergies: No Current Status Primary Language: Greek Past Medical History Surgeries: Hysterectomy, Orthopedic Sleep Apnea Currently Using CPAP: Yes Currently Using BIPAP: No Hypertension FERRY HAND History: Hysterectomy Hypothyroidsim, Diabetes, Non-Insulin dep Blood Disorders: No Family Medical History FHx: gallbladder disease 19 MOTHER FHx: spina bifida G8 BROTHER No Pertinent Family Hx Review of Systems Constitutional: no symptoms reported EENTM: no symptoms reported Respiratory: no symptoms reported Cardiovascular: no symptoms reported Gastrointestinal: no symptoms reported Musculoskeletal: see HPI Skin: no symptoms reported Psychiatric/Neurological: No Symptoms Reported Physical Exam Physical Exam Vital Signs Vital Signs - First Documented 07/01/22 07:55 Temp 36.3 Pulse 91 Resp 24 B/P (MAP) 155/69 (97) Pulse Ox 99 O2 Delivery Room Air Capillary Refill : Less Than 3 Seconds Height, Weight, BMI Height: 5'4.00" Weight: 192lbs. 8.0oz. 87.835689hr; 34.27 BMI Method:Estimated General Appearance: No Apparent Distress, WD/WN HEENT: PERRL/EOMI, Moist Mucous Membranes Respiratory: Lungs Clear, No Respiratory Distress Cardiovascular: Regular Rate, Rhythm, No Murmur Gastrointestinal: Normal Bowel Sounds, Non Tender, Soft Extremity: Other Neurologic/Psychiatric: Alert, Oriented x3 Results Results/Procedures Labs Laboratory Tests 07/03/22 05:10 Patient resulted labs reviewed. Imaging: Reviewed Imaging Report Assessment/Plan Assessment and Plan Assess & Plan/Chief Complaint OA s/p right TKA management per primary FELT CUTTER for pain control, well controlled Zofran from nausea HTN BP elevated, likely due to missing her meds this morning and pain trend Hypothyroidism Continue home meds as appropriate DVT ppx: Lovenox Thank you for consult, will round prn. ASHIA KEENAN MD Jul 01, 2022 15:25
[2022-07-01] MEDS: NS IV 1000 ML 1,000 ML IV SCH ×2 (16:33→20:22)
[2022-07-01] MEDS: CEFUROXIME INJECTION 750 MG in NS (IVPB) 50 ML IV SCH (16:34)
--- NOTE | 2022-07-01 16:38 | Diagnostic Imaging Report ---
INDICATION: Post total knee. FINDINGS: Two-view right knee shows total knee arthroplasty in anatomic alignment. No unexpected postoperative finding. IMPRESSION: Good appearance of the postop total right knee. Dictated by: Dictated on workstation # [id number]
--- NOTE | 2022-07-01 17:29 | OPERATIVE REPORT ---
DATE OF SERVICE: 07/01/2022 PREOPERATIVE DIAGNOSIS: Right knee primary osteoarthritis. POSTOPERATIVE DIAGNOSIS: Right knee primary osteoarthritis. PROCEDURE PERFORMED: Right total knee arthroplasty. SURGEON: Luis Lu MD SAT INSTRUCTOR: Temo Tamayo, who assisted throughout the procedure and closed the incision. ANESTHESIA: General endotracheal by Lanette Medina CRNA. TOURNIQUET TIME: 60 minutes at 300 mmHg. ESTIMATED BLOOD LOSS: Minimal. DRAINS: None. COMPLICATIONS: None. POSTOPERATIVE PLAN: Routine total knee arthroplasty protocol. The patient was transferred to the recovery room awake and stable condition. MATERIALS: MicroPort cemented size 4 femur, cemented size 4 tibia with 10 mm insert, and a cemented size 32 patellar button. STATEMENT OF MEDICAL NECESSITY: The patient is a 62-year-old female with longstanding progressive right knee pain. Radiographs revealed severe medial and patellofemoral arthrosis. She has undergone treatment with injections, anti-inflammatories, and rest without relief. Due to functional impairment and failure to improve with conservative measures, the patient elected to proceed with surgical intervention. DESCRIPTION OF PROCEDURE: After the risks and benefits of the procedure were discussed and questions were answered and informed consent signed and placed on the chart, the operative site was confirmed in the preoperative holding and initialed by the surgeon. The patient was then transported to the operating room. After adequate level of general endotracheal anesthetic was obtained, a timeout was called, confirming the operative site. The right lower extremity was prepped and draped in the usual sterile fashion. With the leg elevated and the knee flexed, tourniquet was inflated to 300 mmHg. A standard anterior approach was utilized. Hemostasis was obtained with cautery. Medial parapatellar arthrotomy was performed, leaving 1 cm cuff on the patella for later reattachment. A portion of the fat pad was resected. A subperiosteal release was performed in the proximal medial tibia, being careful to stay on the bony surface. The ACL was resected. The intramedullary guide was passed into the femoral canal. The distal cutting block was placed and the distal cut was made. The femur sized to a size 4. The 4 cutting block was placed parallel to the epicondylar axis and cuts were made from posterior to anterior. Subperiosteal release was then carefully performed on the posterior distal femur, being careful to stay on the bony surface. Intramedullary guide was then passed into the tibial canal. The cutting block was placed. The drop chung transected the intermalleolar axis. The tibia was then prepared with the drill and keel punch. The femoral trial was placed. The trochlear cut was made. A 10 mm trial was placed. The patella was then prepared by resecting 10 mm off the undersurface using the freehand technique. The peg guide was placed and the peg holes were drilled. The 32 trial was placed and the knee was taken through range of motion. Full extension was easily obtained, 120 degrees of flexion with gravity was easily obtained. The patella tracked well. There was no anterior/posterior laxity in flexion or extension. The trials were removed. The joint was irrigated with pulse lavage. The periarticular block was placed in the posterior capsule, medial and lateral retinaculum extensor mechanism, subcutaneous tissues. The bone ends were irrigated and dried. The tibial baseplate was cemented into position. Excess cement was removed. The superior surface was irrigated and dried and the polyethylene insert was placed. The distal femur was irrigated and dried and the femoral prosthesis was cemented into position. Excess cement was removed. The knee was brought out in full extension until the cement had cured. The undersurface of the patella was irrigated and dried. The patellar button was cemented into position. Excess cement was removed. Once the cement had cured, the knee was taken through range of motion, full extension was easily obtained, 120 degrees of flexion with gravity was easily obtained. There was no anterior/posterior or medial/lateral laxity in flexion or extension. The patella tracked well. The joint was further irrigated with the pulse lavage. The arthrotomy was closed with #2 [place] in a ucyhqw-cq-zcevm interrupted fashion. The knee was flexed. Repair was stable. Subcutaneous tissues were irrigated with pulse lavage using a total of 6 liters throughout the procedure. The 0 Vicryl was used for the deep subcutaneous layer, 2-0 Vicryl for the superficial subcutaneous layer. [place] were used on the skin and soft dressing was applied. The tourniquet was deflated and the patient was transferred to recovery room awake and in stable condition. Job ID: [id number] DocumentID: [id number] Dictated Date: 07/01/2022 10:44:52 Satellite Tv Technician Installer Date: 07/01/2022 17:27:00 Dictated By: LUIS LU MD
[2022-07-01] MEDS: SENNA W/DOCUSATE (SENOKOT S) TABLET PO SCH (20:21)
[2022-07-01] MEDS: oxyCODONE/APAP 5/325MG (PERCOCET 5) TABLET PO PRN (20:22)
[2022-07-02] MEDS: CEFUROXIME INJECTION 750 MG in NS (IVPB) 50 ML IV SCH (01:29)
[2022-07-02 04:00] VITALS: BP 167/75
[2022-07-02] MEDS: NS IV 1000 ML 1,000 ML IV SCH ×2 (04:00→15:54)
[2022-07-02] MEDS: oxyCODONE/APAP 5/325MG (PERCOCET 5) TABLET PO PRN ×4 (04:00→16:52)
[2022-07-02] MEDS: MULTIVIT W/MINERALS TAB (THERAGRAN M) PO SCH (05:11)
[2022-07-02 06:04] LABS: HEMOGLOBIN 12.1 g/dL (11.5-16.0)
--- NOTE | 2022-07-02 07:53 | Progress Note ---
Standard Progress Note Progress Notes/Assess & Plan Date Seen by a Provider: Jul 02, 2022 Time Seen by a Provider: 07:52 Progress/Assessment & Plan post op check no complaints radiographs--Hw well positioned without fracture RLE--2 plus DP pulse with brisk cap refill intact DF and PF of toes and ankle intact sensation to light touch throughout s/p RTKA mobilize as able Final Diagnosis no complaints Vital Signs Date Time Temp Pulse Resp B/P (MAP) Pulse Ox O2 Delivery O2 Flow Rate FiO2 07/02/22 07:33 14 07/02/22 05:32 18 07/02/22 04:00 36.6 84 18 167/75 (105) 97 Room Air 07/01/22 23:31 36.0 78 18 155/72 (99) 99 Room Air 07/01/22 21:00 18 07/01/22 20:00 36.2 82 16 148/77 (100) 97 Room Air 07/01/22 20:00 Room Air 07/01/22 16:00 36.0 98 22 131/66 (87) 92 Room Air 07/01/22 12:52 36.6 102 18 172/82 (112) 91 Room Air 07/01/22 12:41 36.6 18 07/01/22 11:35 Room Air 07/01/22 11:25 36.8 12 164/80 (108) 95 Room Air 07/01/22 11:25 Room Air 07/01/22 11:18 12 170/80 (110) 96 Room Air 07/01/22 11:10 Room Air 07/01/22 11:08 12 171/81 (111) 100 OxyMask 10.00 07/01/22 10:58 12 171/82 (111) 99 OxyMask 10.00 07/01/22 10:55 OxyMask 10.00 07/01/22 10:48 15 185/81 (115) 100 OxyMask 10.00 07/01/22 10:38 OxyMask 10.00 07/01/22 10:38 37.3 20 187/83 (117) 97 OxyMask 10.00 07/01/22 07:55 36.3 91 24 155/69 (97) 99 Room Air I & O 07/02/22 07:00 Intake Total 2260 ml Output Total 450 ml Balance 1810 ml Laboratory Tests Test 07/01/22 08:19 07/02/22 05:39 Range/Units Glucometer 205 H 70-110 MG/DL Hemoglobin 12.1 11.5-16.0 g/dL Hematocrit 36 35-52 % RLE--dressing intact NVI no calf tenderness s/p RTKA PT/OT MADELYN UL MD Jul 02, 2022 07:53
[2022-07-02 08:03] VITALS: BP 151/75
[2022-07-02] MEDS: ENOXAPARIN INJECTION 30 MG/0.3 ML SYR SC SCH ×2 (08:10→21:21)
[2022-07-02] MEDS: SENNA W/DOCUSATE (SENOKOT S) TABLET PO SCH ×2 (08:10→21:21)
[2022-07-02] MEDS: ASPIRIN E.C. 81 MG (ECOTRIN) TAB PO SCH (08:10)
--- NOTE | 2022-07-02 08:42 | DISCHARGE SUMMARY ---
DIAGNOSIS: 1. Right knee primary osteoarthritis. 2. Hyperinsulinemia. 3. Echo's hypothyroidism. 4. Asthma. PROCEDURES: Right total knee arthroplasty. SUMMARY OF HOSPITAL COURSE: The patient is a 60-year-old female who underwent a right total knee arthroplasty on the day of admission. Postoperatively, she did well. At the time of discharge, her wound was clean and dry. She had no calf tenderness. Negative Homans sign. She was tolerating her diet well and tolerating pain with oral pain medication. CONDITION ON DISCHARGE: Good. DISCHARGE DIET: Regular. Followup is in 3 weeks. DISCHARGE MEDICATIONS: Home medications, one aspirin per day for 30 days and Percocet as needed for pain. Job ID: [id number] DocumentID: [id number] Dictated Date: 07/02/2022 07:53:08 Artistic Associate Date: 07/02/2022 08:40:00 Dictated By: MADELYN LU MD
--- NOTE | 2022-07-02 10:41 | Physical Therapy Daily Note ---
PT Daily Note-Current Subjective Patient agrees to PT. Pain Section J - Health Conditions 1. Rarely or not at all 2. Occasionally 3. Frequently 4. Almost constantly 8. Unable to answer Pain Effect on Sleep: 2 Pain Interference with Therapy: 1 Pain Interference w/Day-to-Day: 1 Mental Status Patient Orientation: Normal For Age Attachments: IV Transfers SCALE: Activities may be completed with or without assistive devices. 5-Aijcgnvwxb-ddnqcpw completes the activity by him/herself with no assistance from a helper. 5-Set-up or Clean-up Assistance-helper sets up or cleans up; patient completes activity. [place] assists only prior to or following the activity. 4-Supervision or Touching Assistance-helper provides verbal cues and/or touching/steadying and/or contact guard assistance as patient completes ac tivity. Assistance may be provided throughout the activity or intermittently. 3-Partial/Moderate Assistance-helper does LESS THAN HALF the effort. [place] lifts, holds or supports trunk or limbs, but provides less than half the effort. 2-Substantial/Maximal Assistance-helper does MORE THAN HALF the effort. [place] lifts or holds trunk or limbs and provides more than half the effort. 1-Nflvhkqbt-tohsmf does ALL the effort. Patient does none of the effort to complete the activity. Or, the assistance of 2 or more helpers is required for the patient to complete the activity. If activity was not attempted, code reason: 7-Patient Refused. 9-Not Applicable-not attempted and the patient did not perform the activity before the current illness, exacerbation or injury. 10-Not Attempted due to Environmental Limitations-(lack of equipment, weather restraints, etc.). 88-Not Attempted due to Medical Conditions or Safety Concerns. Lying to Sitting/Side of Bed(Q: 6 Sit to Stand (QC): 6 Chair/Xyc-by-Dfxve Xfer(QC): 6 Toilet Transfer (QC): 6 Weight Bearing Right Lower Extremity: Right Weight Bearing/Tolerated Left Lower Extremity: Left Full Weight Bearing Gait Training Distance: 300' Walk 10 feet (QC): 6 Walk 50 ft with 2 Turns(QC): 6 Walk 150 ft (QC): 6 Gait Assistive Device: FWW functional, reciprocal pattern Exercises Supine Ex: Ankle pumps, Quad Set, Heel Slides, Straight leg raise Supine Reps: 20 Seated Therapy Exercises: Long arc quads Seated Reps: 20 Assessment Patient progressing with treatment plan and will dismiss to home tomorrow after therapy. Patient AROM right knee 5-80 degrees PT Jail Goals Foreign Legal Consultant Goals PT Foreign Legal Consultant Goals Time Frame: Jul 08, 2022 Roll Left & Right (QC): 6 Sit to Lying (QC): 6 Lying-Sitting on Side/Bed(QC): 6 Sit to Stand (QC): 6 Chair/Uie-sa-Mavrw Xfer(QC): 6 Toilet Transfer (QC): 6 Walk 10 feet (QC): 6 Walk 50ft with 2 Turns (QC): 6 Walk 150 ft (QC): 6 PT Plan Treatment/Plan Treatment Plan: Continue Plan of Care Treatment Plan: Bed Mobility, Education, Functional Activity Wilmer, Functional Strength, Gait, Safety, Therapeutic Exercise, Transfers Treatment Duration: Jul 08, 2022 Frequency: 11 times per week Estimated Hrs Per Day: .25 hour per day Patient and/or Family Agrees t: Yes Time Time In: 826 Time Out: 849 DATE: Jul 02, 2022 Total Billed Treatment Time: 23 Total Billed Treatment 1 visit EX 15 min GT 8 min JERMAINE CALHOUN PT Jul 02, 2022 10:41
--- NOTE | 2022-07-02 11:19 | Occ Therapy Progress Note ---
Therapy Progress Note OT orders received and chart reviewed. Per patient and RN, pt has been ambulating and completing all toileting tasks independently. Pt was admitted back in March 2022 for L TKA. She denies having any trouble with self cares after last discharge and reports she still recalls all education given during last stay. Pt declines any further OT services at this time. OT will discharge. Maria E Deshpande OT Jul 02, 2022 11:19
[2022-07-02 11:25] VITALS: BP 151/81
[2022-07-02] MEDS ORDERED: METF-865 PO (12:03)
[2022-07-02] MEDS ORDERED: SPIR100T4 PO (12:03)
[2022-07-02] MEDS ORDERED: CNC1KV IJ (12:03)
--- NOTE | 2022-07-02 14:01 | Physical Therapy Daily Note ---
PT Daily Note-Current Subjective Patient is very agreeable to participate with PT. Pain Section J - Health Conditions 1. Rarely or not at all 2. Occasionally 3. Frequently 4. Almost constantly 8. Unable to answer Pain Effect on Sleep: 2 Pain Interference with Therapy: 1 Pain Interference w/Day-to-Day: 1 Mental Status Patient Orientation: Normal For Age Attachments: Polar Pack, IV Transfers SCALE: Activities may be completed with or without assistive devices. 0-Anxmdmgvex-agwbltw completes the activity by him/herself with no assistance from a helper. 5-Set-up or Clean-up Assistance-helper sets up or cleans up; patient completes activity. [place] assists only prior to or following the activity. 4-Supervision or Touching Assistance-helper provides verbal cues and/or touching/steadying and/or contact guard assistance as patient completes activity. Assistance may be provided throughout the activity or intermittently. 3-Partial/Moderate Assistance-helper does LESS THAN HALF the effort. [place] lifts, holds or supports trunk or limbs, but provides less than half the effort. 2-Substantial/Maximal Assistance-helper does MORE THAN HALF the effort. [place] lifts or holds trunk or limbs and provides more than half the effort. 1-Haueofdcy-inwezj does ALL the effort. Patient does none of the effort to complete the activity. Or, the assistance of 2 or more helpers is required for the patient to complete the activity. If activity was not attempted, code reason: 7-Patient Refused. 9-Not Applicable-not attempted and the patient did not perform the activity before the current illness, exacerbation or injury. 10-Not Attempted due to Environmental Limitations-(lack of equipment, weather restraints, etc.). 88-Not Attempted due to Medical Conditions or Safety Concerns. Lying to Sitting/Side of Bed(Q: 6 Sit to Stand (QC): 6 Chair/Hnm-pn-Znqxx Xfer(QC): 6 Weight Bearing Right Lower Extremity: Right Weight Bearing/Tolerated Left Lower Extremity: Left Full Weight Bearing Gait Training Distance: 300' Walk 10 feet (QC): 6 Walk 50 ft with 2 Turns(QC): 6 Walk 150 ft (QC): 6 Gait Assistive Device: FWW reciprocal pattern Exercises Supine Ex: Ankle pumps, Quad Set, Heel Slides, Straight leg raise Supine Reps: 15 Seated Therapy Exercises: Long arc quads Seated Reps: 15 Assessment Patient continues to progress with treatment plan. Patient up in recliner with needs met. PT Custodial Goals Custodial Goals PT Field Cashier Goals Time Frame: Jul 08, 2022 Roll Left & Right (QC): 6 Sit to Lying (QC): 6 Lying-Sitting on Side/Bed(QC): 6 Sit to Stand (QC): 6 Chair/Cok-ek-Gwgtj Xfer(QC): 6 Toilet Transfer (QC): 6 Walk 10 feet (QC): 6 Walk 50ft with 2 Turns (QC): 6 Walk 150 ft (QC): 6 PT Plan Treatment/Plan Treatment Plan: Continue Plan of Care Treatment Plan: Bed Mobility, Education, Functional Activity Wilmer, Functional Strength, Gait, Safety, Therapeutic Exercise, Transfers Treatment Duration: Jul 08, 2022 Frequency: 11 times per week Estimated Hrs Per Day: .25 hour per day Patient and/or Family Agrees t: Yes Time Time In: 1315 Time Out: 1338 DATE: Jul 02, 2022 Total Billed Treatment Time: 23 Total Billed Treatment 1 visit EX 13 min GT 10 min JERMAINE CALHOUN PT Jul 02, 2022 14:01
[2022-07-02 15:32] VITALS: BP 146/64
[2022-07-02 19:36] VITALS: BP 158/70
[2022-07-03] VITALS: BP 158/67
[2022-07-03] MEDS: oxyCODONE/APAP 5/325MG (PERCOCET 5) TABLET PO PRN ×3 (00:57→09:10)
[2022-07-03 03:33] VITALS: BP 149/70
[2022-07-03] MEDS: MULTIVIT W/MINERALS TAB (THERAGRAN M) PO SCH (05:56)
[2022-07-03] MEDS: NS IV 1000 ML 1,000 ML IV SCH (05:57)
--- NOTE | 2022-07-03 07:08 | Progress Note ---
Standard Progress Note Progress Notes/Assess & Plan Date Seen by a Provider: Jul 03, 2022 Time Seen by a Provider: 07:07 Progress/Assessment & Plan post op check no complaints radiographs--Hw well positioned without fracture RLE--2 plus DP pulse with brisk cap refill intact DF and PF of toes and ankle intact sensation to light touch throughout s/p RTKA mobilize as able Final Diagnosis no complaints Vital Signs Date Time Temp Pulse Resp B/P (MAP) Pulse Ox O2 Delivery O2 Flow Rate FiO2 07/03/22 06:27 36.2 07/03/22 05:57 36.2 07/03/22 05:57 14 07/03/22 03:33 36.2 82 16 149/70 (96) 98 NIV CPAP 07/03/22 01:27 36.2 07/03/22 00:00 36.8 94 16 158/67 (97) 99 NIV CPAP 07/02/22 20:54 97 Room Air 0.00 07/02/22 20:00 Room Air 07/02/22 19:36 36.3 85 16 158/70 (99) 99 Room Air 07/02/22 15:32 36.5 83 18 146/64 (91) 99 Room Air 07/02/22 11:25 36.4 79 18 151/81 (104) 98 Room Air 07/02/22 08:03 36.5 79 18 151/75 (100) 96 Room Air 07/02/22 08:00 Room Air 07/02/22 07:33 14 I & O 07/03/22 06:59 Intake Total 2580 ml Balance 2580 ml Laboratory Tests Test 07/03/22 05:10 Range/Units Hemoglobin 11.0 L 11.5-16.0 g/dL Hematocrit 32 L 35-52 % R knee incision clean and dry no calf tenderness neg Cliff's s/p RTKA doing well DC home after PT MADELYN LU MD Jul 03, 2022 07:08
[2022-07-03] MEDS ORDERED: morphine INJ 4 MG/ML 1 ML (VIAL/SYRINGE) IVP PRN (07:15)
[2022-07-03 08:00] VITALS: BP 174/75
[2022-07-03 08:08] VITALS: BP 185/80
[2022-07-03] MEDS: ASPIRIN E.C. 81 MG (ECOTRIN) TAB PO SCH (09:09)
[2022-07-03] MEDS: SENNA W/DOCUSATE (SENOKOT S) TABLET PO SCH (09:10)
[2022-07-03] MEDS: ENOXAPARIN INJECTION 30 MG/0.3 ML SYR SC SCH (09:10)
--- NOTE | 2022-07-03 10:08 | Physical Therapy Daily Note ---
PT Daily Note-Current Subjective Patient agrees to PT. Pain Numeric Pain Scale: 7 Location: Right Location Body Site: Knee Pain Description: Acute Section J - Health Conditions 1. Rarely or not at all 2. Occasionally 3. Frequently 4. Almost constantly 8. Unable to answer Pain Effect on Sleep: 2 Pain Interference with Therapy: 1 Pain Interference w/Day-to-Day: 1 Mental Status Patient Orientation: Normal For Age Attachments: Polar Pack Transfers SCALE: Activities may be completed with or without assistive devices. 2-Rljktwtjsq-xowwkyr completes the activity by him/herself with no assistance from a helper. 5-Set-up or Clean-up Assistance-helper sets up or cleans up; patient completes activity. [place] assists only prior to or following the activity. 4-Supervision or Touching Assistance-helper provides verbal cues and/or touchi ng/steadying and/or contact guard assistance as patient completes activity. Assistance may be provided throughout the activity or intermittently. 3-Partial/Moderate Assistance-helper does LESS THAN HALF the effort. [place] lifts, holds or supports trunk or limbs, but provides less than half the effort. 2-Substantial/Maximal Assistance-helper does MORE THAN HALF the effort. [place] lifts or holds trunk or limbs and provides more than half the effort. 4-Bweewhhig-bxmhrc does ALL the effort. Patient does none of the effort to complete the activity. Or, the assistance of 2 or more helpers is required for the patient to complete the activity. If activity was not attempted, code reason: 7-Patient Refused. 9-Not Applicable-not attempted and the patient did not perform the activity before the current illness, exacerbation or injury. 10-Not Attempted due to Environmental Limitations-(lack of equipment, weather restraints, etc.). 88-Not Attempted due to Medical Conditions or Safety Concerns. Lying to Sitting/Side of Bed(Q: 6 Sit to Stand (QC): 6 Chair/Obh-rg-Ydjpr Xfer(QC): 6 Weight Bearing Right Lower Extremity: Right Weight Bearing/Tolerated Left Lower Extremity: Left Full Weight Bearing Gait Training Distance: 300' Walk 10 feet (QC): 6 Walk 50 ft with 2 Turns(QC): 6 Walk 150 ft (QC): 6 Gait Assistive Device: FWW safe and functional reciprocal pattern Exercises Supine Ex: Ankle pumps, Quad Set, Heel Slides, Straight leg raise Supine Reps: 15 Seated Therapy Exercises: Long arc quads Seated Reps: 15 Assessment Patient continues to progress with treatment plan and will dismiss to home on this date. Home health to follow. Patient instructed to continue with HEP issued at preop. Patient voices understanding. PT Correction Goals Correction Goals PT Correction Goals Time Frame: Jul 08, 2022 Roll Left & Right (QC): 6 Sit to Lying (QC): 6 Lying-Sitting on Side/Bed(QC): 6 Sit to Stand (QC): 6 Chair/Imn-zv-Ebize Xfer(QC): 6 Toilet Transfer (QC): 6 Walk 10 feet (QC): 6 Walk 50ft with 2 Turns (QC): 6 Walk 150 ft (QC): 6 PT Plan Treatment/Plan Treatment Plan: Discontinue PT, goals met Treatment Plan: Bed Mobility, Education, Functional Activity Wilmer, Functional Strength, Gait, Safety, Therapeutic Exercise, Transfers Treatment Duration: Jul 08, 2022 Frequency: 11 times per week Estimated Hrs Per Day: .25 hour per day Patient and/or Family Agrees t: Yes Time Time In: 806 Time Out: 829 DATE: Jul 03, 2022 Total Billed Treatment Time: 23 Total Billed Treatment 1 visit EX 13 min FA 10 min JERMAINE CALHOUN PT Jul 03, 2022 10:07
[2022-07-03 10:20] VITALS: BP 175/74
== END 2022-07-03 10:20 | disposition home health service (06) | DRG 470 ==
LOC: 4TH 07:53 → SURG 07:54 → 4TH 11:35
PROVIDERS: ADMIT Orthopaedic Surgery; ATTEND Orthopaedic Surgery
PROC: 0SRC0J9 Replacement of Right Knee Joint with Synthetic Substitute, Cemented, Open Approach (ICD-10-PCS; principal; 2022-07-01 09:07)
PROC: 5A09357 Assistance with Respiratory Ventilation, Less than 24 Consecutive Hours, Continuous Positive Airway Pressure (ICD-10-PCS; 2022-07-03)
DX: M17.11 Unilateral primary osteoarthritis, right knee (principal); Z96.652 Presence of left artificial knee joint; E16.1 Other hypoglycemia; J45.909 Unspecified asthma, uncomplicated; I10 Essential (primary) hypertension; E11.9 Type 2 diabetes mellitus without complications; E03.8 Other specified hypothyroidism
CPT/HCPCS: 36415; 73560; 82947; 85014; 85018; 86850; 86900; 86901; 87081; 94664; 94760